=== PATIENT | male | born 1995 | race Hispanic/Latino ===

== ENCOUNTER 2021-04-03 21:17 | Emergency (ER) | payer OTHER ==
[~2021-04-03] VITALS: Ht 175.3 cm; Wt 79.1 kg
[2021-04-03 23:45] VITALS: BP 120/63
[2021-04-04 01:29] LABS: BASO % 0.4 % (0.0-1.0); EOS # 0.2 10^3/uL (0.0-0.5); HEMOGLOBIN 15.7 g/dl (13.5-17.5); LYMPH # 2.6 10^3/uL (1.5-5.0); LYMPH % 27.9 % (24.0-44.0); MEAN CORPUSCULAR HEMOGLOBIN 29.9 pg (27.0-33.0); MEAN CORPUSCULAR HGB CONC 34.1 g/dl (32.0-36.5); MEAN CORPUSCULAR VOLUME 87.6 fl (80.0-96.0); MONO # 0.6 10^3/uL (0.0-0.8); NEUTROPHILS # 5.8 10^3/uL (1.5-8.5); NEUTROPHILS % 63.4 % (36.0-66.0); PLATELET COUNT, AUTOMATED 243 10^3/uL (150-450); RED BLOOD COUNT 5.25 10^6/uL (4.30-6.10); WHITE BLOOD COUNT 9.2 10^3/uL (4.0-10.0)
--- OUTSIDE RECORDS SUMMARY | 2021-04-04 01:35 | CCD ---
Author Author [facility] Organization [facility] Address Unknown Phone Unavailable Care Team Providers Care It Administrative Assistant Name Role Phone Lucas ALEJANDRA Unavailable Unavailable Re-disclosure Warning The records that you are about to access may contain information from federally-assisted alcohol or drug abuse programs. If such information is present, then the following federally mandated warning applies: This information has been disclosed to you from records protected by federal confidentiality rules (42 CFR part 2). The federal rules prohibit you from making any further disclosure of this information unless further disclosure is expressly permitted by the written consent of the person to whom it pertains or as otherwise permitted by 42 CFR part 2. A general authorization for the release of medical or other information is NOT sufficient for this purpose. The Federal rules restrict any use of the information to criminally investigate or prosecute any alcohol or drug abuse patient.The records that you are about to access may contain highly sensitive health information, the redisclosure of which is protected by Article 27-F of the [facility] Public Health law. If you continue you may have access to information: Regarding HIV / AIDS; Provided by facilities licensed or operated by the [facility] Office of Mental Health; or Provided by the [facility] Office for People With Developmental Disabilities. If such information is present, then the following [facility] mandated warning applies: This information has been disclosed to you from confidential records which are protected by state law. State law prohibits you from making any further disclosure of this information without the specific written consent of the person to whom it pertains, or as otherwise permitted by law. Any unauthorized further disclosure in violation of state law may result in a fine or group home sentence or both. A general authorization for the release of medical or other information is NOT sufficient authorization for further disc losure. Encounters Encounter Providers Location Date Indications Data Source(s ) Emergency Attender: JANE ALEJANDRA [id number] 10:04:00 PM EDT - 03/07/2021 01:37:00 AM EDT [facility] Patient discharged. Medications No Information Insurance Providers Payer name Policy type / Coverage type Policy ID Covered democrat ID Covered democrat's relationship to farooq Policy [employer] Plan Information [employer] [id number] SP [id number] Larisa [id number] Problems, Conditions, and Diagnoses Code Display Name Description Problem Type Effective Dates Data Source(s) R00.2 Palpitations Palpitations Diagnosis 03/06/2021 10:04:00 P M EDT [facility] Surgeries/Procedures Procedure Description Date Indications Data Source(s) TROPONIN QUANTITATIVE <td>POCT TROPONIN</td><td>Ro utine</td><td>03/07/2021 12:11 AM EDT</td><td></td><td> </td> 03/07/2021 12:11:00 AM EDT [facility] ECG ROUTINE ECG W/LEAST 12 LDS W/I&R <td>ECG 12- LEAD</td><td>STAT</td><td>03/06/2021 11:35 PM EDT</td><td></td><td> </td> 03/06/2021 11:35:23 PM EDT [facility] PROTHROMBIN TIME <td>PROTIME-INR</td><td>STAT </td><td>03/06/2021 11:20 PM EDT</td><td></td><td> </td> 03/06/2021 11:20:00 PM EDT [facility] BLOOD COUNT COMPLETE AUTO&AUTO DIFRNTL WBC COUNT <td>C BC AND DIFFERENTIAL</td><td>STAT</td><td>03/06/2021 11:20 PM EDT</td><td></td><td> </td> 03/06/2021 11:20:00 PM EDT [facility] THYROID STIMULATING HORMONE TSH <td>TSH</td><td>STAT</ td><td>03/06/2021 11:20 PM EDT</td><td></td><td> </td> 03/06/2021 11:20:00 PM EDT [facility] THYROXINE FREE <td>T4, FREE</td><td>STAT</t d><td>03/06/2021 11:20 PM EDT</td><td></td><td> </td> 03/06/2021 11:20:00 PM EDT [facility] COMPREHENSIVE METABOLIC PANEL <td>COMPREHENSIVE METABO LIC PANEL</td><td>STAT</td><td>03/06/2021 11:20 PM EDT</td><td></td><td> </td> 03/06/2021 11:20:00 PM EDT [facility] Results ID Date Data Source [id number] 03/07/2021 08:55:47 AM EDT [address] [address] Name: COLLETTE MAHONEYDOB: 1995Sex: MOrdering Provider: JANE Saha Prov: JANE Lynch Provider: Procedure Performed: / XR CHEST PA AND LATERALExam Date: 03/06/2021 22:58MRN: [id number] Number: [id number] Class: EmergencyAccount #: [id number] for Exam: palpitationsTechnique: PA and lateral views obtained.Comparison: NoneFindings: There is no evidence of heart failure or pneumonia.IMPRESSION: There is no evidence of heart failure or pneumonia.Report electronically signed by: GIOVANNI ALMENDAREZ On 03/07/2021 8:55 AMWorkstation ID: [id number] Name Value Range Interpretation Code Description Data Lisa rce(s) Supporting Document(s) ID Date Data Source [id number] 03/07/2021 08:16:37 AM EDT [facility] Name Value Range Interpretation Code Description Data Lisa rce(s) Supporting Document(s) EKG [facility] FFSFHd6wRxAGFiPwr6GlCuTgQOYiRS6etuc7U6M7vPHmC1QnhUFxu7zfL8InR7EkFVLqZLJTTU3UrUWx jb2 [file] Om7nlRH2MLRpEszDTk2Qn6BiyhO7dyLmWra3HCg0YtPmVX7A ID Date Data Source [id number] 03/07/2021 08:16:08 AM EDT [facility] Name Value Range Interpretation Code Description Data Lisa rce(s) Supporting Document(s) EKG [facility] YUTCBl2zOkZFXdFqh1JvFvTxWGCbTI6tnja3H0R8wANyU7PldBYxf1xqF4NyK3OgHFLaUNTCNP3TsLVr jb2 [file] k9SqdMOZ2oPNwh00k4h1LO1aobuXkiK1NAMydYnahwRlwYz1wjJQ4Bf89wY4sWYZse6xDj/grape grower/fm9Pj [file] ftrup+1+3d4j6H1k6qvzncrcj41+1nsjmL3f9oxshs rpp51+GtsZ17iyIGbPU+R6jz1cONY4dLdod77P6/m0dDptMUbr3b5mNaYXQfix1VJtfcvQrhtb4R99H4 I3nzKLp26v4rFtt1a4VOkiXN/N+mnWT/N+mvfTvJ/m/TTvp3k/zftp3k/bukt887B/mamWar3f18S1Y6 3303Y/fcsKvn7b79NWH+70935/7fTTTj/t9NNOP+30 004/9xEJcgdaPm6kG7bG4tBHe7h+o2ahfaUWmnfFb0nzC61qf6EjdSL6WCx6tiehmP80D7xFt4c0mux4 57qxPi0358mNH580jcLQa99m1sW2u+b9NO+neT/N+2neT/N+mvfTvJ/m/rKrV3g8hM2P5/203U/b/bTd K2h2fM6O8/20000103/aBJBvn4fPJSD/20000103/bTTTz t3uUdjhlsCKLM9nfr+8r//IdjRLPVO9AfoN2B+rzoPys1/zS5dBn+AP8B/384Pxye0dCebS/+lypTz5c fe8isn/53TxZO/Xr4n/5V4QVQEpYgWPafw7fqjMjtU/G8u6vz0GZ20ysdr/EGiSeZIjGaEL6k9kIxpPz nm13W81d4ekDiRmRsRT+c2azMNz57ee66cHm4JN96t /36ma1QG9jo/yY/f8oL0k39xqJFdObITpBUYgjmYciNzbd8/Jj/Pyjv6p83mUcPJ1XMu00gq2rhZRQ0Y slsG/4B/mj/jK2dm7ATv5F/poCw2xsY8icnOxpismZygiJ4Z/AX+Ex1AsgT5P02Hw9FeG3+Dv8E/4J/m L+gcC+3ywU9e7HFTSKmzSzlF1mrK8wZUN/QQlQKn2K VRVFcFadXht4FoxL6aeCVFWz5AhX++xv8DbjBG+Pgbse4M4hvnvby2MOxH7Y12W3/Bd/A3+Bv8A/5pvq E/G9praK+ixIs3stY/wZ/gL/Jyee6v9/B+De/M0Q9B78lxeh3p5/B+De/C3N0q25dJvw570wFeJc9X4V 8o00rrbz4w4/F+He/N1Z9l44ekpf5n5/F+He/X8X4d 24cgixme26X7Z9z87a5V9y55r7H9W+3daO/G+914vxvvd+D6okanwmj59G752n/G+298urmg1+D9HrT3 oV2E6N5y99U8V7i19K3Z4f1966G2N+37tE2Dph/ae9Deg/ZbtMwumzwaR5vLtdGJjgjFL+AL+AL+BH+C e4Ic0Vu4Sw9Fg+A7+A7+Bn9/47E8medz8r/nQbnrGW dyVFdO6rfW0mN5IvA5rO8O8J8k06X3Y2g99K1c+J+O/7/ZC2mO7gnV1eYrHfBonfBEtTK/wI/8uaw0fm xx/cT1C/uPyaMosJmkG6wWt81IpaD+uP55tHC2wgMX/KM19X2zWfuO2NS+JRPvd/b3SFK/Kq/H+emHkv qJADXxvYYKm3wkiz/G0eFbx1oh+5pQNhfVPt9di4o/ Pn1VUr+e8eS17vyG+lX5Bo7+/6lfpa/n6u+yoB9KZekxjut98D6Yj0mMXXwqDE4Lw/7oE64xn2zq00A1 NA0kJx6DAxl9nT14jbf/e1O/llCyQHnTh0B/wV/gL/AVfAXfwI/2noou/IGuX4V4fpaA1J+o2p1aM7r5 Leena+pbGuiROUv+21cZHWu0qE+fUiGpu82ed/9WSWw9 Pcfo2Hg+pZqV+l3EK/wsVMCUmm6PYdr/FSLgvbQz0G/7XXTtX/g+9hDRjSz1Ypph34yX/839c0Q6jk+t XYWWevf+O45G/7pTJmRl5QCgxYy7p/FvpVru/crOZbAnIl1Zb3xQvbraTpY0i/cT3aG/pVriXjjORXP8 Me8HtHzlq30FpgGhHsS781rW+sI3JNC5+79h4NcZ3a /3jsbmpd0rn7hItFBOMF2wsirxaM29p7nSp7IYPdGXzPBX1Y8UwO/QzrMdh2L2I+DlTeEGmKNK9T4EpU /JaF9vwN+flM8Ge/u2Zuict9DW/vN/Dl3TIpO3OPwPwvR/yd9IvXq51lA+pXMSfPp+aehieYLTJc1Rz3 E/wJ/gJ/ga/uj40cPDglAikV5vYR44Bb6Xz9Mjtm57 FM/SrLqV/dMvgD/AG+fN/HmfrVk+W051QZ/AV+qGmhAkT2q6iY7241hfrqi02n/ZsHZtqvdvLDfuVV/u yGWrSzn0J+4tUt6aPwz1fH+5YjawW93qyGf1xuveJLGY+WEG1GW94gCH5IG4+Ny858gtohFiJz1iTQD3 8jci4vfejWkGEVR0XLg/4hLtkPWU9eDB048Hk5U5XN xa+c9skqv/rgb7KhTfix0A0ysZTa7jq0q8R+4a9d1ZhyJD16/w/9Ga8ltKvbvDwsFlNngJNj7zij0EcH acuQ7H7Ag1tg4LXHIZ57y/B+Q7+n7421jkYWEbi0N2xDc29O/ke96Bhl1hzJY2lkAfwQn6dtvwbUCQ22 HKV+lXJO/RmhrWyAbMf4n+nh5iw8zEj8W2JL+xP2q6 k9P0/t+XmqgC/gz+/7Mst+leUF/cXqiGoyOmRo6gxyJebRojqsFcN3+vxqbdea5s+e5Zvvza46gBvhF/ gT/Al+jpnd3GmE5fwX+9U0w/8x/H5G17VvtPbxpfK+s02b9MpN1zzF+9WE/Jd6305f5XjQ9rbL+9V0vF /H+5K213Jn7WrE+tV0vF/lEgH02NG7Y3s3Dl2nuG4y 53ciT2Vx1cA0wvG/lvEpWfGqIk6gAu+a0K/mRn/eeL+bU0Z0uicABmnUZ/sZsS33cI2R6VwP+tWEfjWh E89GitayYoO8hav08VD8rtK+NWG/mrBfTdivJuxXE/ioZhuCuR8dth40Ie+icB6u5K5P0AcH5qwP+9WC /KpRjfBtj5cpE40y3g/uaYhmpvM4Bh/AN/Ad/N4/Wk /rk+vp of global marketing+XmlfnXLzU/9Ku9N/arKA/kTacO5w/YYYQooFVct9JUI5k9by2afof9tgvF0nhfw/A3+Bj/aG9 +lywevEAtkO6qdg7x6bN/5n7CQW2t0jiYUyhFylV3tBTlbJ1ItO1zof17n4Yl3Tv9A/RvPPeD3/uCaeL 2W95v5BAzBvJmv/kk3kvzCmBwnoai10z2Y7k51e4J7 ab+q/+K0l9fqHK+lhU3Eoznfc/vbcJ1eN2mRe8y9zh44e9U6U+1daO/C+MX+4FqK+rI6TjtVvww++jP0 a6GG2cN5LbT8uv1I37jpg+L3Ga5anz9W7knwp4sr4r1l9a/i/Srer+X2Doyncs5l9l+kvMv6OgVlQtFa 6/Xvsl7/LhvgD/OYlGkHrmlJOilLaAqEldzB5A8w1/ wHne05PC/G2I6Xe1xvOg0/rR1ahxWmq/jXbhKtLs0qQf8sS7mja77y+qHHtkCmYz7Q3AL6lbQw/DrGr+ P9Otqb+nKxO3olA8BXAi/V8Hi1f6h/tDRuMh93Gy+3JuAioeWAv2AjJS3SpQa7gvM0j634ft+Z0g709e a9Sox65Fpe8ziq23k7y/d+0Kr6U4i9NQ/7FbJkHt8p Nk7j1B4G0CnQ/BdSt5sDhok1kgD8myB/DgZlLeUdNl0wGp9j0L5C6PzQ/HjWo0qOr/Rp/Vmf3j/Sp9dH +tax876ozT2hw/GxZm70zgsFW2z2CXFslYebhBNSKxnzamz6c1/0satmX6Yaa12y6yb9S+pkacJBdl3A /4Doftd0k/U0ss3M8F549qs58am36k/W/+pXdmLtH2 mmwTe9Tc2ZSbxJ6cIi2nQmnPkfszjikj+Ghr2hiuQoXL94nT4yNosAr3HgcQbbqOr6xmOhiQ/jx639Cd Bw80p2ExI+5XnN+jezbj6VD1xEj2gmfZNms3n0O1DgP8MYp5SVwiylHRe4b9taJEFaNd4eb1B58edK3H brDdc7+I7rN+rZ4B/wT/GmS8cg7c61x/9CF3x54H9y 0cdP4be7kx75s9ae25l15j0MDgC7rryziOl/e00Kx9A8lu+gq/fLNPWrKg/n5i7E2v1Lc+L6iXoW+L3+ 0xMdC653YsMr9Pg2UZ0k/K8U/lcK/yke0Eq3Xkc8raL0L5XOI9Ldp6Waz3oy+FE96m8P+jQOa3BclOF9 7e2qrW+jFrsez2mAscX4+0EZ/AN+wOlRwZM0jt7G7u Y6zaE0f4mNDp/KsZ/5EPJnt1BrSvvS3ov0QJiArcKUra0CNByx6F0x9QgrQx8k3gGcKI2Rx2j+opr7gy v5YY/H34KvM4wVuqspli0kizz+NJGT25z5YPlGy01Y/cFbfuf/hD1Hn2jkdHw9+8qmo95zF0813Z+7yn unovIidWaZfa7iD9/wN/gH/HL9oL49hfJm/dzQr+r/ lX4Bfvsh1+07QI45FrRY+dHDRkDzpTDMKzR4IjW/qu/CtazasD8226+Vu/+MleO1we48EerZtt5ZF5/K 7+/p/SNN/UqMyHg6bb8uD+nB+D9Cxjnm95Z/oUK/WldXJx5IgQ/njMt0MM+bmjqd6stC3c9kWtuAO/Pz 5glLnr9h9PvXK+AE3RT2ah1d3XxAXp9kS5Ea5S/w25 /RUgZ6Uc5Y1+A7+Be7oud4+5dXs96t6Zp7LO6x/1p7xxbD+AI+1ahQ7zP2OyJ4iW9K2A6r90J7573Txq 31ek8dM4hT/sH1eL/xydA5Xny2rdn+VyYCvqCe/o6cICQAde+uU9BZ3J91P6/BM3eX6XV3Sk30q/mz1w p2389he6QG0m23wakp1/WRwb/e5G2i7C+3ifZOtHei vfBvN/i3G/yhAe6iAd04q1+7wb/k5U2l0K74+Lcb/NsN/u0G/4zLl5aQf57b072oQeh98s16sJ05T/qV Xb5l9EbT/emfLwe7H2U+ZdCvTNFe+Lcb/NsN/q0wBq3pJ/92g3+8Rjitfe5udg4WE//3TyEj5Qm3B/8H 7YV/y0kp04cdDikimbm9r7bMMR+7XtCu6A/vI864k6 6AUBIV4W35fMte/6hpCyigz9U35sr1/2ve+7/Esau+laH3195q/jveL/UHD/xNCw96w8mt8j3h0DZV/u8 G/3eDfbvBvN/i3G/obAv3qMb12a0+8poY7o99jimr3eds95a2+5irvKns99WJO/3bbivoVzzXUg/kK/l cG/yvD/bMvg7N6595hp01nFgfiYsm0koJ+ZbBfGexX UdqFfV1e6V0Z+mTDsaSyCjg9oyM+DjZe8bB1GSw/B+8L9yl8og/vsF/584A/wO/2OvYH/en+7E/7m/kz wV/mC7Am5Mh43idNta86id80r/446t/4Pxv//0Yn38dY25jPk2mUy11N+z/76O+pr4R0wMyaT+rp/TIf 7V/gN9YXd4b9n8qkD3Bx6c/21K+aRUe1I09wi9bXng aGAbrwI3b4S96x+AP8tj+96TsInx6PWALoIcZ4r8mj/p8Pv0uBQ9itx69Ti4mlOv49M6zq08uhpmoRDj 8ueL/S31+kEH8c4hkq3zn0tm/Gg27pleZh6o/4eO5Tb91Z+lzgK/bOtyFo6Wv7mA2r2U631lyhP/B7vR Kalci7YsaBZmXg0bxvRV34h/T30aLa7o60hUY5hZ08 JwhOS5OxR/bQr+71YX/2LOtzbdQO/3ZP/Gn0tGegtXtb7grH3R+r/B400Zim8v94/Fcp7yMmkTLL6CUf 2CXnE446stzYpEf85X3pjz+vC0YfbCQ/DhmKz33H6uK0i/TQr9K/0UO/xfR9n027q1PySpvDnrPXpr88 vDfaW8/yHl+N4Pd5vUmcCt4/I6aaF7p4+msu1bArnP 82F6qojO6cO/vsjsC8118/v11L1naeFteDjGvqRDdCJPr/8L9y+F85/K8c/lcO/yvH/eQay7WsP+jYH3 NqAp08zeLjLwJpj05d0I1y+uXtw7VqZ+ju4G/v2E8zSxr5G9u+3gc8P574Sri6IK/AF/An+SC62s07L1 5O/voLtrk1NDqIod31Wb/9efd+qKd+dcvNL/tVlcEf /X1J/utYZp4Bl+9S4oqTPgL6iihjvbDgXuPuIrZ+Xt0nk8Try0+Vtcsb/C9mIqSdadIFv5yn9f50YlzL FocV6rK0c/5jSiNnO1ufL+XctUO/PujmZf8u0lu5Fe0nw7C9B1qSkk8dd76Vcr64iC57N+3/vEO/uuWw x+0e63Z62hzqlggN6Lp43lavh52dC4mW4Cg49oFEA0 yQx1KYZ/vNagCwf81dzy//573xKJOKB0sA/XkkP+zPtwy+9XsYSL4/E+1j7uDe6erOeZX6m/A93yHfgY /1Et7c0ERZv4kv/ugm3v0b8z1747/6dtYc98o+7fmu07/9lrs/SO+Eyce18b581ra/36ktbX/e0v78O/ Xq3BA33Xtp86qrm1mP+3F14qfQRmf0x8Wx7XS6H32t 3Vih3zZ56cwzD6xJ/sL1PV/n0sXWdo4cvtx3Y+5U77GyEA/c6mJv6QGGp6O3w/mr/XP2av+6vdrevtN+ LMGXB4FQOX05Z0QYa838dk0S7X3KoaEg4Tc7It3gi6LrfoLrqQqYDn5GZ+BO2TE8mXlFTe1nX/AX+Ggv 2it91kr5Ui331DD0UhbxK/wDfvtPbvhfbfhfbfhfbc P7Nbxf+F9t+F9t+F9t+F9t+U4aW5wV5XM/1Ta0F/5XG/5XG/5XG/8Y02YoQ6b6/UP2nu24+vGplZ471+ 6ew17953asV2i+KoiuCwedH39i+AY++rOjPzveL/iolyN4icA60urQ5j04kjog4ejwj5E4oD/tz6p68f WZY8y72k1L2o08T/rRia40oU9q7Zw0c/A3+Af8Pu+8 U7+6ZfAH+AN8AR/kNIfdzsYp6IFju/YetPegPx+738S4QhX9vU0l2/d5vI2jp1Jvd5C1bmuz8s2y00rd /h3qM6K2zY/Bn+Ox9CJj23y8/R7M8VwN1XgqMxq2+Fo5Xi5Uf/isMb8yl+p24jybc9jM2ZG7BX+CP1H/ Qv1tbz+a9u8N2fwH//NzMZdR09Ml9C/j2x56Qo3dSP l/7QGpN3sc84nYDg9K2KUMQ/VxKsid322t764i722w021a685n780q620w419Z5HC/+4F/+4F/+4F/+4 F/+6vb82Y4F9r63F8u2n+c4C/wF/zl64VV9+eaO4yvf9eF7/b2g/3Bg/3Bg/3BM9v+hFymf045pP/1/s H+4MH+9Qnahz5R41z6+dzJlysJv95tR3aKYe19vEJr q60awsvMm/A3+Y8dQWa6DWyz+/z+Ww1u9Wps9H48aVh/J/XnxSm65zyaM7dWE9q9AsnUrE/6su2tLzfr g/hXB/uDB/7tB/7tB/jin+kH1L172Z90gz6p8S/ZHaoXv8TD/+og/tVB/KuD+GhD4ypMpx3qjC84yD36 EP/lSR2YIhijd/ODx3p//6R+Feu4E/lYsmbqrP1niN 47oV+iXrbzylucQ59Cz+rxtMcmP+JRZD8J/Uo9+eEPHDaB4+0/eVK/yn4S+xD2OI58i2k+KXxHcPqv4p Y+2R9e/Kw8uJA12c4ok4Rgwj20ck+T/Fl4m3HuOv/g4Kf/Vcph5/nf+A+74xMe+Cxp6jhXm/8DaM7cig /2b018C1C7jI/Ncq9/T/gzRDrFVli9lu42y6e25UJ1 dspGocV8z6/L7iBV9e3+Hemyn9Yf1TmuG/AFfMzPB/Rkvxp8VD7exS0Sic/E6gteOf0o3BD201NhKOM2 ByKWK53bmV0zVjw7HWCfUbopDJDAXk0mMnjpzsylMnoluH8oDhrKcVjXtwevDmtbleUy92xsFyfmn6wh LoVPrQNSdpy4f+dDgkh/yq0WVIeVRqKqlLxA8jW6P2 Q+DNesUzrAWbFXVNMDWgraYvrNhGSezOGKvWxk5gP+b/1VPhW3Bdo71TsA8MgE1rSFKA5FqKyIREMdIf GgcJc0avRg1nAkVJgDxl2uh46Qf8s0Ye7z8ntJ4hyH66ouwhIftX6JPx8+lK433doI5DmuS2W/yLFPhn x2QY7ggA0U8SXaAc+ItE+GechwpE/WrtWQnaNaa4Fj nneQVwq2GUVm6TfCmCvMFmAlya1IEclxCc8BHOpXKcmmKszzTwrJObvxlaoumW8VEUNFZT7pFue8Zfmi /h3jf3P+b9ei5khWuoSS4hGj4qHpdog4oR9eje4enQ86ZuoWeJO4NaPJijho0kJ/EihslL6dvJ9wK/JN qE0D0Nwd/XX9WHzAiZ3gFjSdLNTJsSlYuMBSe9d6Q/ JLAIFj/Ca3OgzU1XX0L5MGjUG16Vc2zcJrKAdzngptuU5FRmYvZqZLfDJhCk5yR8pSKeBIlX+HBJFBZB ARIr1C/VLbUzcLJozZCkWVgFpUQRKTOFMnZ1jtcwLCZvRjmq/9PCSIDCKDiBARIpPIJEIZbMpgK+9BbN KMuKOciqggx8j686h3wH6mTciyVFJXPvRQfC4l/D4H KP8xW6nYHUAhaYymr1ayynBHaQCmCXY1O7VFKWExu1IBSB6eKg/4CCIIDTvgSzb+JNYYiDYx/qTZGIg3 TBi56eQPZSIsFoA+NyPiRJzIJrKJHCKUwUA/QWIpX3XDBtn/MTJAfROsjTIYlMGgDAZlMCiDQRkMymBQ AcVdQELKmZmFXDXrt3YIMBaJyN/IIMJ+OMvKur1pvB KjrfVZxPlapr7ysI+hDMR4j/EeykAoAwaw/xPB/dhpd1feW1wXotSfo8xItDEEaEImcQeRIpaZAUJeMM Op/G/G/2YSwZrvKRqVJdxDmMqS7/5PYPs/ke3/hLb/E9v+H2Y3A5Dz/4S3/xPf/k+A+z8R7v+EuP8T4/ 5PkPs/Ue7/hLn/E+f+ZnecDOvMw2alE90wcq77BnxX tbKkEjIyW2aJEEZHkoDe0h6UcYOILvje1L7+9ySb7k6ENidnPT2YI2MgthIYNAOAOCWTKZWTZWp+NTzZ RoXC/ukhumypG2FwgIYRCmMTMAYqrMYVRa6EYKZadWJYWu8VKBYrqYFzAho7hcFboMSqJAljgAzADsYV JauxyuOKtq7wV1M3KccqY1nG/xMq/0+s/D/B8v9Ey/ 0MDj0LcRm/AfP/Regino/EzL/V8i7vcNw25oMG8PWHOdf09UceWVQiEEXchPa8Es/wuf/iZ//J4D+nwj6f0 Lo/4mh/Paulo/p8o+n/C6P+Amena/0eiR4pRAy/Qun/iaX/J5j+haWbTeVPiX5vLK9dNLKHgsU9kwAeXE9oyC [file] Pastry Wrapper+BgMhnVF8163PjTKhyG2hv8IGiWL4Qg6nc1Bu7bBJTs6FImCM2Yn0gdpS0WLaXh/BstJ7bczMoshV7 [file] 11pUZou269Ft+concrete form setter/NctebEUz9PUTF3gOVgRuwJzgq WiuJxRX514rdTNHCJC+xTC8Kdql9SRpXTh+SWZzvmt4McffjwnxpfSoxnqULiwQXkOciR4nLUcOTlDBf NIwCFeJG8ONv8g9vdn7TEhefPKGh1N4M/eUIMxSU73pJ3+WRyWyadAzoPwTRiKIiZScIOgFJqqZCB9U+ GZwRN8Ywy7BPCHvRzRoW3hYheX4I1zyRiWxQ1FOzVJ C9k4p2HDsPZplELMuHtVhM1MZyLCP8nbDp9Ue2QVqVlE2DDY+OzN7t84PRwRcRJWYlIJ7In4KRjLJhIK cFRDzPDSFYYkuYueIjZPpeM6Ubcd9NVZOf5nB2uoj9XhbXBQFP+H193i7a20ihOmVdW0XtRn3Z7KTC/c YRK8V6LE0B7snMmPfLkb1XcjRak5uyIno1zHn+YqKf mOgnOo/NsEblT6dhN1buN7j8I22OSynPDUIboRG/iR0tUujG5KP5VmpWePOv4XLut1PS7+cTM5pddO3H 0BHnrD3ZbCrsD4SmXXwDIwVViZFs+miC18oNZyxMLnDRTNxTKwvWRpwPnlNbDEL9UMeTBbRJbOOqTI1O PYfDXBOAErIFmRHNPPDcvTIebCqClutUS4TKACWDIH [file] Hy2ifDS2XHOnWhvFWs9Jw7EhduV0ehHdWiy1ZRR8JvFcHB3R ID Date Data Source [id number] 03/07/2021 01:01:44 AM EDT [facility]PATIE NT INFORMATIONPatient MRN Name Date of Age Gend*PT [id number] Collette Mahoney 1995 26 years M EDPT Location Admission Date/Time Visit ID Attending [id number] 03/06/212203 --- Jane Alejandra MD ([id number]) EPI ID CSN Admitting Provider [id number] ---Provider in Triage NotesNo notes on fileHistory of Present IllnessChief ComplaintPatient presents with Tachycardia Pt was at the movies when he started having substernal pressure, racing heartand diaphoresis. Upon EMS arrival patient feeling a little better. States he hasa known bradycardic arrythmia but unsure of the name26 year old male patient presents to the ED via EMS for evaluation of chest painwith associated tachycardia, palpitations, mild shortness of breath, anddiaphoresis that began earlier today, but has since subsided. The patient statesthat he believes he had a panic attack. The patient thinks he ate too much fastfood this past weekend and drank alcohol all weekend. The patient admits todrinking a lot of vodka and energy drinks throughout the weekend. 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 The patient states that he began to experiencing chestpain and intermittent tachycardia and palpitations, diaphoresis, and mildshortness of breath while watching a movie. This episode lasted about 20 minutesbut currently he is feeling much better. The patient states that there is heartdisease on his mother's side of the family, but no one has suddenly due toa cardiac event. Denies fever or chills.History provided by: Patient, medical records and EMS personnelLanguage conference interpreter used: NoHistoryHistory reviewed. No pertinent past medical history.History reviewed. No pertinent surgical history.History reviewed. No pertinent family history.Social HistoryTobacco Use Smoking status: Current Every Day Smoker Packs/day: 1.00 Years: 5.00 Pack years: 5.00 Smokeless tobacco: Never UsedVaping Use Vaping Use: Never usedSubstance Use Topics Alcohol use: Yes Alcohol/week: 9.0 standard drinks Types: 9 Standard drinks or equivalent per week Comment: 9 daily for the last 3 weeks Drug use: NeverROSReview of SystemsConstitutional: Positive for diaphoresis. Negative for chills.HENT: Negative for sore throat and trouble swallowing.Respiratory: Negative for cough and shortness of breath.Cardiovascular: Positive for chest pain and palpitations.Gastrointestinal: Negative for abdominal pain and vomiting.Genitourinary: Negative for dysuria and hematuria.Musculoskeletal: Negative for back pain and neck pain.Skin: Negative for rash and wound.Neurological: Negative for weakness and headaches.Psychiatric/Behavioral: Negative for agitation and confusion.Physical ExamBP 142/76 (BP Location: Left upper arm, Patient Position: Lying) | Pulse 76 |Temp 98.6 F | Resp 18 | Ht 69" | Wt 81.6 kg | SpO2 98% | BMI 26.58 kg/m Physical ExamVitals and nursing note reviewed.Constitutional: Appearance: Normal appearance.HENT: Head: Normocephalic and atraumatic. Nose: Nose normal. No rhinorrhea. Mouth/Throat: Mouth: Mucous membranes are moist.Eyes: Extraocular Movements: Extraocular movements intact. Conjunctiva/sclera: Conjunctivae normal.Cardiovascular: Rate and Rhythm: Normal rate and regular rhythm. Pulses: Normal pulses. Heart sounds: Normal heart sounds.Pulmonary: Effort: Pulmonary effort is normal. Breath sounds: Normal breath sounds.A bdominal: Palpations: Abdomen is soft. Tenderness: There is no abdominal tenderness.Musculoskeletal: General: No deformity. Normal range of motion. Cervical back: Normal range of motion and neck supple.Skin: General: Skin is warm and dry.Neurological: General: No focal deficit present. Mental Status: He is alert.Psychiatric: Mood and Affect: Mood normal. Behavior: Behavior normal.ED CourseECG 12 leadDate/Time: 03/06/2021 11:35 PMPerformed by: Jane Alejandra, MDAuthorized by: Jane Alejandra, MDPrevious ECG: Previous ECG: UnavailableRate: ECG rate: 65 ECG rate assessment: normalRhythm: Rhythm: sinus rhythmComments: QTc 401MDMNumber of Diagnoses or Management Hsjaude59 year old male patient presents to the ED via EMS for evaluation ofpalpitations, diaphoresis, and shortness of breath.DDx includes arrhythmia, ACS, hypertrophic cardiomyopathy, anemia, metabolicderangement, thyroid disorderLabs, EKG, CXRTriage note appreciated: patient denies history of diagnosis of cardiacarr hythmia but states he has felt like he has had moments in which his heart hasbeat slowly in the past11:10pmCXR without acute pathology, my impressionWBC 12.4Electrolytes unremarkableNormal CrNo transaminitisTSH normalFree T4 fxwuvf32:09amTpn negativeNormal EKG, unremarkable labs, patient is feeling better. I have low suspicionfor acute cardiac pathology; unclear why patient felt palpitations earliertoday, he does admit to alcohol drinking and heavy caffeine use via energydrinks which I think is contributory to his presentationHas not felt additional palpitations while he has been hereTo follow up with primary care physician; will place patient navigator requestas patient is personnel and is not sure how he can access a primarycare physicianReturn precautions givenStable for [id number] scribed for Dr. Jane Alejandra MD, signed by Iam Babb CIM on03/06/2021 at 10:32 PM.ED MD AttestationAttestation of Scribe Documentation: I personally performed the servicesdescribed in the documentation, reviewed the documentation recorded by gardenia in my presence and it accurately and completely records my words andactions.Jane Alejandra MD 11:09 SHERRON [facility] Name Value Range Interpretation Code Description Data Lisa rce(s) Supporting Document(s) ID Date Data Source [id number] 03/07/2021 12:23:05 AM EDT [facility] Name Value Range Interpretation Code Description Data Lisa rce(s) Supporting Document(s) POC CTNI <0.01 ng/mL (0.01-0.07) L [facility] Less than 0.08: Myocardial injury unlike lyGreater than or equal to 0.08: Highlysuggestive of myocardial injuryCorrelation with rise and/or fall ofserial troponins, clinical symptoms,and ECG changes is necessary.PERFORMED BY [facility] CLINICAL STAFF ID Date Data Source [id number] 03/07/2021 12:12:48 AM EDT [facility] Name Value Range Interpretation Code Description Data Lisa rce(s) Supporting Document(s) PT 11.2 s (9.2-11.9) [facility] INR 1.06 [facility] SUGGESTED THERAPEUTIC RANGES USING INR F ORSTABILIZED ANTICOAGULATED PATIENTS:STANDARD DOSE THERAPY INR 2.0-3.0 DVT, PE, PREVENT DVT OR EMBOLISMHIGH DOSE THERAPY INR 2.5-3.5 PREVENT EMBOLISM FROM MECHANICAL HEART VALVE ID Date Data Source [id number] 03/07/2021 12:05:26 AM EDT [facility] Name Value Range Interpretation Code Description Data Lisa rce(s) Supporting Document(s) TSH,ULTRASENSITIVE @ 1.282 mIU/L (0.360-4.170) [facility] PERFORMED AT [address] [place] [address] [address] [id number] ID Date Data Source [id number] 03/07/2021 12:05:26 AM EDT [facility] Name Value Range Interpretation Code Description Data Lisa rce(s) Supporting Document(s) SODIUM 144 mmol/L (136-145) [facility] POTASSIUM 3.5 mmol/L (3.6-5.2) L [facility] CHLORIDE 114 mmol/L (100-108) H [facility] CO2 23 mmol/L (22-31) [facility] ANION GAP 7 mmol/L (7-16) [facility] UREA NITROGEN 17 mg/dL (7-24) [facility] CREATININE 0.90 mg/dL (0.80-1.30) [facility] BUN/CREAT RATIO 18.9 RATIO (10.0-20.0) [facility] GLUCOSE 101 mg/dL (70-99) H [facility] CALCIUM 8.9 mg/dL (8.4-10.2) [facility] TOTAL PROTEIN 6.5 g/dL (6.4-8.2) [facility] ALBUMIN 3.4 g/dL (3.5-4.6) L [facility] GLOBULIN 3.1 g/dL (2.7-4.3) [facility] ALB/GLOB RATIO 1.1 RATIO [facility] ALKALINE PHOSPHATASE 103 U/L (45-117) [facility] BILIRUBIN,TOTAL 0.7 mg/dL (0.0-1.0) [facility] PLEASE NOTE:Total bilirubin results may be falselyelevated in patients taking Eltrombopag. AST (SGOT) 15 U/L (11-39) [facility] ALT (SGPT) 15 U/L (12-78) [facility] GFR >60 ml/min/1.73m2 (>59) [facility] GFR ( AMER) >60 ml/min/1.73m2 (>59) [facility] GFR INTERPRETATION [facility] --NORMAL KIDNEY FUNCTION OR MILD DISEASE - GFR >OR= 60CHRONIC KIDNEY DISEASE - GFR 15 - 59RENAL FAILURE - GFR <15 Est. GFR calculation based on the MDRDstudy equation, which assumes a steadystate for creatinine. Est. GFR should notbe used for medication dosing. ID Date Data Source [id number] 03/07/2021 12:05:26 AM EDT [facility] Name Value Range Interpretation Code Description Data Lisa rce(s) Supporting Document(s) FREE THYROXINE @ 1.16 ng/dL (0.76-1.46) [facility] PERFOR[facility] AT [address] [place] [address] RADHA ROSENBAUM N Y [address] ID Date Data Source [id number] 03/07/2021 12:04:41 AM EDT [facility] Name Value Range Interpretation Code Description Data Lisa rce(s) Supporting Document(s) WBC 12.4 10*3/uL (4.1-11.0) H [facility] RBC 5.21 10*6/uL (4.60-6.10) [facility] HGB 15.4 g/dL (13.5-18.0) [facility] HCT 45.9 % (41.0-53.0) [facility] MCV 88.1 fL (80.0-95.0) [facility] MCH 29.6 pg (27.0-32.0) [facility] MCHC 33.6 g/dL (32.0-36.0) [facility] RDW 12.3 % (10.5-14.5) [facility] PLT 194 10*3/uL (150-450) [facility] MPV 8.4 fL (7.1-10.7) [facility] NEUT % 75.1 % (35.0-75.0) H [facility] LYMPH % 16.1 % (16.0-52.0) [facility] MONO % 6.9 % (0.0-8.0) [facility] EOS % 1.5 % (0.0-5.0) [facility] BASO % 0.4 % (0.0-4.0) [facility] NEUT # 9.3 10*3/uL (1.8-7.7) H [facility] LYMPH # 2.0 10*3/uL (1.2-4.8) [facility] MONO # 0.9 10*3/uL (0.0-0.8) H [facility] Eosinophils [#/volume] in Blood by Automated count 0.2 10*3/uL (0.0-0 .5) [facility] BASO # 0.1 10*3/uL (0.0-0.2) [facility] Procedure Social History Code Duration Value Status Description Data Source(s ) Alcohol intake 03/06/2021 12:00:00 AM EDT Current drinker of al cohol (finding) completed Current drinker of alcohol (finding) [facility] Tobacco use and exposure 03/06/2021 12:00:00 AM EDT Never used co mpleted Never used [facility] Cigarette pack-years 03/06/2021 12:00:00 AM EDT UNK completed [facility] Cigarettes smoked current (pack per day) - Reported 03/06/20 12:00:00 AM EDT UNK completed [facility] Smoking 03/06/2021 12:00:00 AM EDT Current every day smoker co mpleted Current every day smoker [facility] Vital Signs ID Date Data Source UNK Name Value Range Interpretation Code Description Data Source(s) Diastolic blood pressure 73 mm[Hg] 73 mm[Hg] [facility] Body temperature 37 June 37 June [facility] Heart rate 58 /min 58 /min [facility] Res[facility] 18 /min 18 /min [facility] Systolic blood pressure 122 mm[Hg] 122 mm[Hg] [facility] Body height 175.3 cm 175.3 cm [facility] Body weight 81.647 kg 81.647 kg [facility] Body mass index (BMI) [Ratio] 26.58 kg/m2 26.58 kg/m2 [facility] Oxygen saturation in Arterial blood by Pulse oximetry 98 % 98 % [facility]
[2021-04-04 01:58] LABS: THYROID STIMULATING HORMONE 2.08 uIU/ML (0.358-3.740)
--- NOTE | 2021-04-04 03:23 | REPVR ---
PROCEDURE INFORMATION: Exam: XR Chest Exam date and time: 04/04/2021 1:46 AM Age: 26 years old Clinical indication: Other: Chest pain TECHNIQUE: Imaging protocol: XR of the chest. Views: 2 views. COMPARISON: No relevant prior studies available. FINDINGS: Lungs: Unremarkable. No consolidation. Pleural spaces: Unremarkable. No pleural effusion. No pneumothorax. Heart/Mediastinum: Unremarkable. No cardiomegaly. Bones/joints: Unremarkable. IMPRESSION: No acute findings. Electronically signed by: Ole Bean On 04/04/2021 03:23:23 AM
--- NOTE | 2021-04-04 05:51 | ECGEPIP ---
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
== END 2021-04-04 02:45 | disposition home or self-care (01) ==
LOC: M ED 21:17
DX: M94.0 Chondrocostal junction syndrome [Tietze] (principal); R00.2 Palpitations; I45.19 Other right bundle-branch block; F17.200 Nicotine dependence, unspecified, uncomplicated

== ENCOUNTER 2021-04-16 09:56 | Emergency (ER) | payer OTHER ==
[~2021-04-16] VITALS: Ht 175.3 cm; Wt 78.5 kg
--- OUTSIDE RECORDS SUMMARY | 2021-04-16 10:04 | CCD ---
Author Author [facility] Organization [facility] Address Unknown Phone Unavailable Care Team Providers Care Wide Area Network Systems Administrator Name Role Phone Lucas ALEJANDRA Unavailable Unavailable [...] is protected by Article 27-F of the [facility] Public Health law. If you continue you may have access to information: Regarding HIV / AIDS; Provided by facilities licensed or operated by the [facility] Office of Mental Health; or Provided by the [facility] Office for People With Developmental Disabilities. If such information is present, then the following [facility] mandated warning applies: This information has been [...] law may result in a fine or longterm sentence or both. A general authorization for the release of medical or other information is NOT sufficient authorization for further disc losure. Encounters Encounter Providers Location Date Indications Data Source(s ) Emergency Attender: JANE ALEJANDRA [id number] 10:04:00 PM EDT - 03/07/2021 01:37:00 AM EDT [facility] Patient discharged. Medications No Information Insurance Providers Payer name Policy type / Coverage type Policy ID Covered constitution party ID Covered constitution party's relationship to farooq Policy [employer] Plan Information [employer] [id number] SP [id number] Larisa [id number] Problems, Conditions, and Diagnoses Code Display Name Description Problem Type Effective Dates Data Source(s) R00.2 Palpitations Palpitations Diagnosis 03/06/2021 10:04:00 P M EDT [facility] Surgeries/Procedures Procedure Description Date Indications Data Source(s) TROPONIN QUANTITATIVE <td>POCT TROPONIN</td><td>Ro utine</td><td>03/07/2021 12:11 AM EDT</td><td></td><td> </td> 03/07/2021 12:11:00 AM EDT [facility] ECG ROUTINE ECG W/LEAST 12 LDS W/I&R <td>ECG 12- LEAD</td><td>STAT</td><td>03/06/2021 11:35 PM EDT</td><td></td><td> </td> 03/06/2021 11:35:23 PM EDT [facility] PROTHROMBIN TIME <td>PROTIME-INR</td><td>STAT </td><td>03/06/2021 11:20 PM EDT</td><td></td><td> </td> 03/06/2021 11:20:00 PM EDT [facility] BLOOD COUNT COMPLETE AUTO&AUTO DIFRNTL WBC COUNT <td>C BC AND DIFFERENTIAL</td><td>STAT</td><td>03/06/2021 11:20 PM EDT</td><td></td><td> </td> 03/06/2021 11:20:00 PM EDT [facility] THYROID STIMULATING HORMONE TSH <td>TSH</td><td>STAT</ td><td>03/06/2021 11:20 PM EDT</td><td></td><td> </td> 03/06/2021 11:20:00 PM EDT [facility] THYROXINE FREE <td>T4, FREE</td><td>STAT</t d><td>03/06/2021 11:20 PM EDT</td><td></td><td> </td> 03/06/2021 11:20:00 PM EDT [facility] COMPREHENSIVE METABOLIC PANEL <td>COMPREHENSIVE METABO LIC PANEL</td><td>STAT</td><td>03/06/2021 11:20 PM EDT</td><td></td><td> </td> 03/06/2021 11:20:00 PM EDT [facility] Results ID Date Data Source [id number] 03/07/2021 08:55:47 AM EDT [address] [address] Name: COLLETTE BARLOWJEFFB: 1995Sex: [place] Provider: JANE Saha Prov: JANE Lynch Provider: Procedure Performed: / XR CHEST PA AND LATERALExam Date: 03/06/2021 22:58MRN: [id number] Number: [id number] Class: EmergencyAccount #: [id number] for Exam: palpitationsTechnique: PA and lateral views obtained.Comparison: NoneFindings: There is no evidence of heart failure or pneumonia.IMPRESSION: There is no evidence of heart failure or pneumonia.Report electronically signed by: GIOVANNI ALMENDAREZ On 03/07/2021 8:55 AMWorkstation ID: [id number] Name Value Range Interpretation Code Description Data Lisa rce(s) Supporting Document(s) ID Date Data Source [id number] 03/07/2021 08:16:37 AM EDT [facility] Name Value Range Interpretation Code Description Data Lisa rce(s) Supporting Document(s) EKG [facility] IPSWPy3uObWPSaEsh5PqEvClGBLzHT5oopo0Y6Z7oWKlC2LnwHNrf2oeV6LeZ8ToJMKnMVMVVJ5QwFFf jb2 [file] Ri5hfGM2CWDsAxwASf7Nd2XiquY2wnVkHrn9BJi9SmHzNI4U ID Date Data Source [id number] 03/07/2021 08:16:08 AM EDT [facility] Name Value Range Interpretation Code Description Data Lisa rce(s) Supporting Document(s) EKG [facility] MZCBGp2pKjNQBnYcv9QePlQfYUGaVP2krsj9I5Y5tIXkQ2KufGAfn8wkL8LqZ5UkDEBsCFBGDR1JxAAl jb2 [file] m1CxcKMT7oDEbk65r4g7SP1ayetEziG8NAOjnPwxerWivMa9jwVF9Ve33aV2cLJXzl5bHn/malt roaster/fm9Pj [file] ftrup+1+0b4q0L8k4uvdtooca71+4wshgS0l6vhmry rpp51+ZreW75okREeQL+U2th0yFRF4zOcom86Y8/x0yPvtZSni1m3oTnSNShzv1WRkznvUmvqh9Q07K5 V7hwSDj81k3fYul6d3GQmwBW/N+mnWT/N+mvfTvJ/m/TTvp3k/zftp3k/zaha018M/ahbMcp3o91J7R4 3303Y/gffAew6n76VNT+51735/7fTTTj/t9NNOP+30 004/1rZLgbvpSd0oZ0eG9fTZj6v+b3dipoEExkwPq2pkE83ze4WekER4KSe7nmsdpA25J8bKg7f2olf3 70zuMe3805xXZ875odTFa21o1hD6g+b9NO+neT/N+2neT/N+mvfTvJ/m/nJaN1z0fJ7B4/203U/b/bTd C9h6tB6H2/20000103/wRBVvk2zRZPA/20000103/bTTTz a0zIeupabEXAD9vhx+8r//NdvGJXDO0YxpV2B+rzoPys1/zS5dBn+AP8B/704Wrpd0oDheZ/+oizRc4n fe8isn/53TxZO/Xr4n/7U0QXGHoYsAGscs4llhYpfF/U1e1in4FT32zbdz/IOpPuPMmUmUS7i5lHfuCy zj34Q76k8qqLzIcKkUU+n3kcISz70ex00xRe4FM77j /46jf9UG0ki/yY/s8pE8u56tsAXcJvWYvYDSyspPzcJtax1/Jj/Krln3a07kMaLC0TZl83ka4peAWT0Y slsG/4B/mj/vO4ai4UEd5C/eeYp5wgM3pbaIiqvewHkbqI5V/AX+Bl7RgjY0F59Kw7XeY6+Dv8E/4J/m L+gcC+5qeV9t6SWGLJfzQcgM1xrD1iKTD/OMrVKy7Q EPWRcFkfWwe8TcvP9dbYJEWo4AbC++xh5NyrEK+Vvoyj8A2fmozgn0ARwG4U74X7/Bd/A3+Bv8A/5pvq E/G9praK+taCj2rrK/wZ/gL/Loxj4h1/B+De/X4N7A66ttwe6g2/B+De/J2Z0u96nGyd699sHlVa9X4Y 1x51exze2z8/F+He/Y1S9l85pcjz9i5/F+He/X8X4d 73xehiit09W6A3a72n7X2u87z1L8R+3daO/G+914vxvvd+X9ewqafbv62G190p/G+095jefj6+D9HrT3 zV1L2Y9f49Y8K2z21O3P5n9656L7Z+97sF2Pgs/ae9Deg/ZvkMenjjpuB1dAedRWdzlVI+AL+AL+BH+C w4Pj0Id2Aw5Hl+A7+A7+Bn9/17X3voiy5k/nQbnrGW haXUyJ9weS1rT9IvD2wJ6A1L6v30O6C6f30N2b+J+O/7/SC8lD6tuK3iBbNiEflfQBpQK/wI/2pac2nl xx/cT1C/bTbhXbgYkdE5hOu28FvxO+rS07aKW5xdON/OL02M5rLmrV3NA+JRPvd/b3SFK/Kq/H+emHkv jVQEYxqBPSe7ddxq/M0uQqn8bz+0aCYvrGTw0uz3j/ Pn1VUr+k4iE29fnI+lX5Bo7+/6lfpa/n6u+fvV9GXoymntv71B9Oh3rXOUawDZ2Ks/7mD65xv3zt93G0 MH9rAa5PRja4uR69fei/e1O/loOrKRbJr4I/wV/gL/AVfAXfwI/2noou/NDaM0W5tazA1L+w2x6qL4y8 Leena+pbGuiROUv+41jCSQi2cY+nMjEfz91pm/9WSWw9 Htyh3Oe+pZqV+l3EK/bvWOANjs5CVdv/RKVofkMq8P/7XXTtX/g+5iPNiEe3Bnuj87tO/111l8R1ec+t XYWWevf+O45G/0eHBlHd6XVewCt3b/FvpVru/peBJcQcQf0Ts8bSobxmYgY1m/cT3aG/pVriXjjORXP8 Zn3TdGdpr89UrtJjExX452wJ+gZ6BYH4+30c1VcL0o /0wejlhn6ke8rBbYMUBH7cebwceJ89m1pVw6QVDrFXgJPX6X3BfO/PeiJph2L0T+RcKpPUiHWH0D1UiA /AyN2zrR+flM8Ge/h7Rqjmg6LX/vN/Tj6KUxZ6LVrCykQ/wk7XfWg68eR+pXMSfPp+jsjccGQDUm8Qi7 E/wJ/gJ/ga/di79fGNgkUozU9bHN53Uv8Oo5Appb13 FM/SrLqV/dMvgD/AG+fN/HmfrVk+W051QZ/AV+qPlvBkW2r9mY5202fkosr13c/ZsHZtqvdvLDfuVV/u cKBeIzw1M+7qDn2iEck3rF+3XqmmN11gbFy3bujyLINJ+XCE6DW70dID1AA8+Wx984qghhRfPm3bUMJ8 3sga2dpeyJiSGYK0EFw/4nJjqRCZ2uLZ005Ht2V0DC xa+c9skqv/nzt7KkKwrl6B1jwIGm6ws8b2W+1y4t8CbjLC59/w/1Uw4ttTnbfAghImBypHJq8leg1NmR hduL4A8Hr5tu6LVLFC45k/B+Q7+p9077ffPZZpo1T3nHr05N/yk77Hgi3pcWX1rxNfwSc0iizzgRVP09 HKV+lXJO/VnaiJjApBo5p+df4ni4mFo7P4MF+xP2q6 k9P0/t+XmqgC/gz+/7Mst+leUF/zRrnTbyIzVk9inxIteMcgjqChT2+cwqwhkc3s+k8Ubywn53dQysU/ gT/Al+yndz0JbS9yyT+9U0w/8x/K4Y77FxqIavqmU+g04z5LnM6bwA+9WE/Fc1005k1QiM2kqU+9V0vF /H+1M191Lz4RvL+tV0vF/cAgF29YM4Q9p2Vn9jiS7x 93ejG6Qs6nL4ztY/pmNlXwDsTj7rOk+a0K/mRn/eeL+sD6I4mwfLUisBG/wFiA21gD1L7VmL+tWEfjWh B61DfszpZbE5dik78PR7qoQ+NWG/mrBfTdivJuxXE/xbGsjAcZ5qgh43Ks+pkR4s6B2N3BsM8tmL+9WC /XaBvvDpv8pqK13b8y/muXyaioH8Xh/AN/Ad/N4/Wk /rk+vp software support+XmlfnXLzU/9Ku9N/arKA/jUqsZ7j/ANFAcgZKsx2SOX1v4ke3oipl0zwxT1rqrr/A3+Bj/aG9 +owvafRJysJ0ebb0c4bG/3j1NQN1q9nsVKdzMkrU8kJYnjV3PbT3ttw19t0Op3Jy4F/RvPPeD3/uCaeL 5J16f2DQaIeSfn/mg5sunThLwpquu50v8X3o58c9X1 ab+q/+O2u9tbFR+egB1Dbjpmb/brrC9jG5zJq9n6ha28s1Q7P+1daO/C+MX+4FqK+iQ9QfiZdez++jP0 v8TL6nB5RwD2yv8I62iyl+Z2Gs8lle0J5tzzn9dv3y5g7c/i/Srer+F2Viefky9q6a+igVe7MuQsDaYp 6/Xvsl7/LhvgD/TCmTjXtcjSCvvCtMuYlmqK3Y3m8/ yJfg94JL/V6Z9Zh2luTe5/tW9hhuKnk/mRhkJtNz6aVa9uF6xth24k+nIAgkPjIg4K0PK3ccNz/DrGr+ P9Otqb+yBnO9svR6OGCz/S6Vo7t8d/cRIgRe16Yb+1PqRnvyHIr1MzMM0DeWt3xcU5b889lm+V4y746n i8Lqv62Dzm7veu72y2m/d+5Ya3Y3n5LJ/6VgXuMv4e Uu7f5K5T7EsD/IkJu8mOwtd4qwW9pqX/BuFfDdOvZs3hKy9m9C2H1GsJ/QhWs7mZy/Rp/Vmf3j/Sp9dH +lnn570pnL6eh/RmOr74eqzNY6r2ZVTkfAmsfDWBChzyebi7i5/4dqddT7Eqr87v1jo6V+vddePUgx7Z /7Kyyjb7t/G1sc9M0D088pb91cn11i/W/+pXdmLtH2 qscBw0La1YItsH4qHf4bEgmHlvrakhxg+Uan6lxhLaXA47dP4uOreYo4StmScwiTm7cwBriY/rw238Zs Yb30j2TdS+5XnN+qntrw7RB6xJn9wfwCBqd9f1X0WqC4HFq3TMboayMPt9u9dwNICuPu5fv6W75rlM0M brDdc7+I7rN+rZ4B/wT/MxT6od0i23l/2SG0t03X3e 4sdM0jl3ci60n7wx97r65g7KEmW0wbskbLw/m35Em0N2zn+gq/fLNPWrKg/r9s7I7w0Ay+L6iXoW+L3+ 4uQjT729ZlJq8Hy6BO9v/K8U/lcK/ktx0Ch1Gpm5ppF2Z4JWR8Lwv3Rgc8od+SW60v3X+uXLk2ItyLW9 7e2qrW+vPtxor7qLctR9+0EZ/AN+zJuEuCQ7qu5N4p L3pcX3h2pIWh/KsZ/5CIZuz1JzWvlT2re3AFrThjRExi6PDIba1R0u0HhyTa9x4bYfOI8Ct6q+opr7gy v5YY/E55VxD7qZnochst6jmze+KZCL81c9ERhBp29F/cFbfuf/xO9Ie1svqAa2+3zgs35kS3986A+7yn zgdpKmgVkLce3kM8/wN/gH/RM4oS92keMb/dzQr+r/ tW0Vsscj0+22KA20OaKP+sEYDhCdaINTFvR9OaN/qu/XwfzpoP7931+Vu/+RfgL6yo93DcjIxq5LE4/K 7+/p/SNN/XwMlYc8sq4qA+nB+N9Xgplx48E/oUK/VslRIl1LyN/frVk6UY+tqpeq4ygG5c0fMbtCF/Pz 1gkVan5b8LpJV+GA0RA0if4j4SePTa9gJ0El7Y/w25 /UKcQ1Jg9P6+A7+En7chw4+3oTh51s3Nm4DS7w/8o1ckyG+AI+8zyE6iT4ArK4pL4L2U0v82B1994Enl 91jd0aA1fI/sH1eL/hocC9Ghs9lfz+VyYCvqCe/g4eDTGSep+dY6IZ9X68S5/LB0sO7EB6Mz09u/mz1w p2654ah5KN8a46dgcm3/WRwb/u0V2l1Y+3ifZOtHei vfBvN/i3G/bzOx7tGs36m9+7wb/z2V8t4C06+Lcb/NsN/u0G/2lRu5uVw83s199iEbw65t34sB71Q/qV Mf1f0TnF/clbMsa6G2B+ZdCvTNFe+Lcb/NsN/t2uDi7mQ/92g3+0Naqosa8hki5EJ//7CwHh0Vg3O/8H 7YV/n8cz91wfKfaejni4p8jYJX+5RiBp9U/nO534z6 2DGHLV2Z58oEgi/1yeVwvij6C26wj3/2ve+7/Esau+ccD6433l/jveL/UHD/jYWp00d1tv5x4g1ZYV/u8 G/3eDfbvBvN/i3G/ytFj8hMd11s0+7uiT9a16xpsn2hpf19p0+4aqgVsy68CLW/3bbivoVzzXUg/kK/l cG/yvD/kIkl5B2570uk68eAfolIiv4idS+ZbBfGexX YjmYgV7g5H2M+tYYrgWqVlq8xyI+WvYl1iM9YZy/B+6N7gt5es/vsF/584A/wO/2OvYH/en+7E/7m/kz wV/sW2Jw8Kd20tyTut03vv45n/446t/4Pxv//2Gd12xG12wTl3iVm33V+z/76O+aa9A1yWltF+rp/TIf 7V/cI6RDa9q3d1qyF7Tf4s/21K+oABi4Z05xe0cYuv aAIvtrV9b9X49w+AP8tj+47KfEll1TIQDwNaY0l7pd/m6Ww7lEY3xnk64Ua2eeEu75E3op46hyflhUZq 8ueL/S31+aWT0m1vxe7ym1qw/Sp06cphZu1f/7pU5Wx47T+lzgK/gUvjEi8Hq6hQ9j2Q302olpA/B7vR Fpqcw0OkxDWaXq3theUC54k/A13iOw2t03vZH3qY85 KzfZY1EeT/bQr+71YX/2LOtzbdQO/3ZP/Ye6bKghaIcj3azF3M+r/K984Klt5n73/Ers7yXfyQEU0UOl 0IKmH245gdoDoRl70B8pox+eZ6NulHH/FxwVh62D4iP5s/TQr9K/0UO/jaT7y774c2TbMptMkjBWae53 vDfaW8/yHl+O7Pr8uQrvGk3/V0bcD1d3+fef9cBtsA 54H2olcZ0gD/ldtuE8144/x98J4gyiSwpEqShcCEiSJXv/8L9y+F85/K8c/lcO/yvH/mYhe0VpC+jYH3 OtBy47hzGqBuMzn36n4L4a+dAvy1AdV+ju4G/s9B8wVoa3F3w+3em4R484Sfy1UX/AF/An+JY03r80P7 5O/jdSbfv4QCuNqr98Ew/9efd+qKd+dcvNL/tVlcEf /X1J/tmSYw1Wy+3T0cyCDqF6fazlwjTqXeBuPqG+Sg4cx3Zcp4+Vtcsb/V8dPsQqciCEc0ol8d41IyyE NaaQ3jG6x/4pGbYfP8hiQ+XctUO/NgfnHc1b1yz8Jx9ci5I7C1eJpm2hw27Gzi94qG67J+3/vEO/uuWw x+6o46I15unzhfpN0Ru10akbh70pJ7sI3Uc82jXPB7 xYf0GTQ/jOugQnu64xyn//840jXKWMB9qL/XkkP+zPtwy+9SfZIO7/E+7z1bHe8ijGtEY2q/Z67bEwqC /9Tp9v7DTNg5zt/axj7l6i6w8599/5evPv29r+7fmu07/9lrs/SO+Jpyh03r652vw/36ktbX/e0v78O/ Iz5TG36Psb32yov8bY+0Z69yxRMpn5w7Xl2NB0R07u 3Ayc1qQ47kyjA7uV/sL1PV/u6sKHhr0xqez1J+3K82HeDC/c3yTv8OCPr8P4h/mr/XP2av+6vdrevtN+ AOVAS4KTEO16Q3LQm298kt5F7B0ZhkQe1Ft1Op2gm3NodmVzaKtROe2AW+TP7XC9nNxKSo5wO/AX+Ggv 2to32mj2Sp162LC7FufuL/wDfvtPbvhfbfhfbfhfbc P7Nbxf+F9t+F9t+F9t+F9t+K9lG0zA1FA/1Ta0F/5XG/5XG/5XG/9T81BjV5l4/IF2dy14+vZimW971+ 1le34881wuK9i+WsoaSkoqF29x+AY++rOjPzveL/retcM1nfJ31hhC7j68tnwf3xsqc3T1jG/ou4o63d JXH7h77z3H9v83E/fNxo34hY8l8Rq0h/A3+Af8Pu+8 U7+6ZfAH+AN8AR/kUNnwpmQu9NLgb/YetPegPx+293N2PzG9fA7o4/s6bA4mz8Czo6L3zhcz3m1n02yj /y4aJ7F8wK/Bn+Sg5KPj87h5/H3S7PmT5CoiSam1+Uv2Dq5Od/dwOc0jd+p98acup6cZ4FP9SX+CP1H/ Qv1tbz+x6b3X8uqH//ZoCYiF08Bt4E/e8s86Hq5qWO l/7GIsS3cp48iPFk1R4OUWL/ZeXrep598l128q921y953i123v512v886g051A9RC/+4F/+4F/+4F/+4 F/+6ly10A6D8g35R7l0j+c4C/wF/vz35QA7+zwY0xvj8eI5/b2g/3Bg/3Bg/3BM9v+nYwdv888jB/1/s H+4MH+5Oxplr1V91s7+dfIzcrCz89oN0jABn25iLEq i72fwbfYh/A3+H6xURa3KEcz+/z+Ci6q7Mbr5E56lBi/J/OktFy00ddyB9qKQ9k5AakSiP/1sy6xMcjz g/hXB/uDB/7tB/7tB/jin+dB8T647H72xq0u7N/LTkrPc6ZO/+og/tVB/KuD+BfA0ouMgv4rdR73xO75 EP/xHC4PIvvbf/ODx3p//6R+Feu4E/zJabkqlF6gdL 47oV+fLyspitndA32Yr+rxtMcmP+JRZD8J/Uo9+eEPHDaB4+0/eVK/yn4S+sP5ZE34l6y+YFfCjKsa6l Y+2R9e/Px2sYM36e6np8Icbc95cs+T/Wl3n1IeDv/g4Kf/Vcph5/nf+A+74xMe+Sfc8cqRt/5NsL8fax /1y179J6P3cA/Ncq9/T/tfLZjZWak4fx50y1z63VB7 tzxNukQ3z1/L6gYJ2n1+Wfnws3Uw6ShoH/AFfMzPB/Ylyyy8FK2geZ0Xhz/V6gelCh3f5VD088XsZEJ1 QuDDQ48tsN2yXza7YXOoJwqrNCLLMd0bWsnfttivDiiljL2aAhoYnHmXjllxFywlcwTu24llUmnzv4hb UgSBtZKHnto8b+dDgkh/ph1HKHlSLpJquZwJ5vG1J4 Q+PSgqKkuWRxPOOHTTUptoYhrGpXWcfEUBnKbj8kI+b/6IJtS3Lrp79GqU7LzA2xKMOH7DxKkEFERkBi HmuWl0zuOu9dRmLSaGgq7ny18Cw4u2Wj0k5fmK3koO84omoqOquM7WGi6+zN148phB3HoaE5L/yLFPhn s2ZP9wsV3P3PHqLb+ItE+GechwpE/WzkSQjbPuu4Dl gijNShd3AYXr7CwZwWgRJoVpsc1NUcqrFh5IVYrOJljtGasuZnaZUfcthgufhG0TCVEBRP6cWri8Rdge /h3jf3P+p2os7sqLawBV3bXo9qCtssx9xT3rtv4gdM50CirQuSZ4MaTIyvlb7aI/HjuawO7wgB3iZ/JN hR7D0Buy/RK6LYyPdL6lSrRkAWLZuYqHdERKt1w7V/ JLAIFj/Ye3RlhR3DM3P0DSuWH87Ug8voNdNPdjdhmsiB9WJxDpCsMHtCZvNr5cB5qCBxJQfM+HBJFBZB ARIr1C/EFlHlyPHimTMyRZdLvYATTSBQPnQ5luhbMVJxHmjt/9PCSIDCKDiBARIpPIJEIZbMpgK+9BbN XJkIGeeohca0u720d8bW1wSstlQNVZUnOAoU6b/D4H UA0aI4sGVMVzhFzyc7ilxsHBiXMzCTZ6F6ZLMVSbr3TTIF0sOg/4CCIIDTvgSzb+JNYYiDYx/qTZGIg3 ZXq98hIEZQWlHnW+NyPiRJzIJrKJHCKUwUA/GQZjS0ZAGsi/MTJAfROsjTIYlMGgDAZlMCiDQRkMymBQ TwGoASQRvJwWRVZdb3PSWTrKkG/IIMJ+TBtJju1aaS AyjvFJmPicjt0yjM+hDMR4j/EeykAoAwaw/xPB/xtje1hsN5sYetCdp4fXvLTBhMXuuHmEUpwZNNGxBP Op/G/G/8VPeWqaPOeCIrcUlIaH7/5PYPs/ke3/hLb/E9v+X2L8A9At/4S3/xPf/k+A+z8R7v+EuP8T4/ 5PkPs/Ue7/hLn/E+f+MbneQBdSc2uuD73aqc02QphE jfTzXvErM5cSABOOkiUz8y1OoYVZTvov3M7+8oUl7z8DRwmpIG4XK8UbdcOQHCQWEFFGCZLMDMj+NTzZ RoXC/jehzaggU2OxwMJCSjYBZENifMRZZi7FEVIniCKFZp9HSZFwzPMrZjx3luKlpIVtDZnswRkFKePM KnewmxTKct5xV0R1YyszT0qP/xMq/0+s/D/B8v9Ey/ 6XIw3QlHq/AfP/Regino/EzL/P0c0vdLa54eAB6NNZWmx00WhdFHTiQDYksSx0Bs/wuf/iZ//J4D+nwj6f0 Lo/4mh/Paulo/p8o+n/C6P+Amena/9zlV4mNDb/Qun/iaX/J5j+ffLnXqNThB9aHR7iHQHRhsI1aqQvQZ2dzJ [file] Automobile Taillight [employer]sembler+MlYwrWU6658CjLUloR3tr7DPpDY9Jb7oo3Ec5pYOYd2MHsCT3Ie2xskY8XAeIn/OuqI2xmkZqdhV3 [file] 10yXEnq312Kj+makeup artist/AjkgvGHg6WYNJ6vBAbIckKvtr XevAuDR327tvXMABBI+fZU9Tqox1UZuBBp+NHYhspr6IwnopnnukcKegyhONecFCiLptN2iLCeQQjMWo ZGbIZgGQ9LMs1x8vtx9UVynzIBKb0U4F/wRABbJX25fL6+UFkXlqaPgdCwSSwKTyRAdRVtFBydYTK9D+ CWuYU2Rsq9RHCOqIzOuN9cMivA5R7pxLwZuO0CFaDF F3s6h6HLqHFnuUFIlBpNfY6JMvJJT1fgIz5Wr4VPaZsB2QWQ+NiZ4z68LBcBpEMJUmLX3Ow1HNrECwRN xAEUzKEUGWPjdGkmPiGXteU5Wwkp0VXQJx7yO9oct5RaoRZQFQ+H990a9j50rlZkKeP9NnCl4X9XSX/c BPN8O5EA2N0dzSzXoLla0AkeCsn4kzFix6wZl+YqKf mOgnOo/HlPxdW7znA1beU4y8B06HEofFZJLjiTQ/sV1eHtdV6DT7VvkDpJEo0AQnf1RL6+hUV8fjqB1K 9QPvvA6TvPcqW7ZvNUbFXwGRtKUn+zhF47sUTlnUQuUIWMeAOniEHqgUqyMlVKF1VVpXHcCQhJFaDB4M YUkXJVOTVuLJfSXRFZHvvJEvgXrPcvuGD4SSQQWWEZ [file] Rr5wpDH7TJKmQdoXEm4Wu4JjgwK1tuKkBos2VCM3IuVlJH5G ID Date Data Source [id number] 03/07/2021 01:01:44 AM EDT [facility] CorporationPATIE NT INFORMATIONPatient MRN Name Date of Age Gend*PT [id number] Collette Mahoney 1995 26 years M EDPT Location Admission Date/Time Visit ID Attending [id number] 03/06/212203 --- Jane Alejandra MD ([id number]) EPI ID CSN Admitting Provider [id number] ---Provider in Triage NotesNo notes on fileHistory [...] by: Patient, medical records and EMS personnelLanguage aviation electrical technician used: NoHistoryHistory reviewed. No pertinent past medical [...] rhythmComments: QTc 401MDMNumber of Diagnoses or Management Tsyloou16 year old male patient presents to the [...] impressionWBC 12.4Electrolytes unremarkableNormal CrNo transaminitisTSH normalFree T4 :09amTpn negativeNormal EKG, unremarkable labs, patient is feeling [...] access a primarycare physicianReturn precautions givenStable for [id number] scribed for Dr. Jane Alejandra MD, signed by Iam Babb CIM on03/06/2021 at 10:32 PM.ED AttestationAttestation of Scribe Documentation: I personally performed the servicesdescribed in the documentation, reviewed the documentation recorded by gardenia in my presence and it accurately and completely records my words andactions.Jane Alejandra MD 11:09 Anh Alejandra, SHERRONhysician Name Value Range Interpretation Code Description Data Lisa rce(s) Supporting Document(s) ID Date Data Source [id number] 03/07/2021 12:23:05 AM EDT [facility] Name Value Range Interpretation Code Description Data Lisa rce(s) Supporting Document(s) POC CTNI <0.01 ng/mL (0.01-0.07) L [facility] Less than 0.08: Myocardial injury unlike lyGreater than or equal to 0.08: Highlysuggestive of myocardial injuryCorrelation with rise and/or fall ofserial troponins, clinical symptoms,and ECG changes is necessary.PERFORMED BY [facility]ICAL STAFF ID Date Data Source [id number] 03/07/2021 12:12:48 AM EDT [facility] Name Value Range Interpretation Code Description Data Lisa rce(s) Supporting Document(s) PT 11.2 s (9.2-11.9) [facility] INR 1.06 [facility] SUGGESTED THERAPEUTIC RANGES USING INR F ORSTABILIZED ANTICOAGULATED PATIENTS:STANDARD DOSE THERAPY INR 2.0-3.0 DVT, PE, PREVENT DVT OR EMBOLISMHIGH DOSE THERAPY INR 2.5-3.5 PREVENT EMBOLISM FROM MECHANICAL HEART VALVE ID Date Data Source [id number] 03/07/2021 12:05:26 AM EDT [facility] Name Value Range Interpretation Code Description Data Lisa rce(s) Supporting Document(s) TSH,ULTRASENSITIVE @ 1.282 mIU/L (0.360-4.170) [facility] PERFORMED AT [address] [place] [address] [address] [place] [id number] ID Date Data Source [id number] 03/07/2021 12:05:26 AM EDT [facility] Name Value Range Interpretation Code Description Data Lisa rce(s) Supporting Document(s) SODIUM 144 mmol/L (136-145) [facility] POTASSIUM 3.5 mmol/L (3.6-5.2) L [facility] CHLORIDE 114 mmol/L (100-108) H [facility] CO2 23 mmol/L (22-31) [facility] ANION GAP 7 mmol/L (7-16) [facility] UREA NITROGEN 17 mg/dL (7-24) [facility] CREATININE 0.90 mg/dL (0.80-1.30) [facility] BUN/CREAT RATIO 18.9 RATIO (10.0-20.0) [facility] GLUCOSE 101 mg/dL (70-99) H [facility] CALCIUM 8.9 mg/dL (8.4-10.2) [facility] TOTAL PROTEIN 6.5 g/dL (6.4-8.2) [facility] ALBUMIN 3.4 g/dL (3.5-4.6) L [facility] GLOBULIN 3.1 g/dL (2.7-4.3) [facility] ALB/GLOB RATIO 1.1 RATIO [facility] ALKALINE PHOSPHATASE 103 U/L (45-117) [facility] BILIRUBIN,TOTAL 0.7 mg/dL (0.0-1.0) [facility] PLEASE NOTE:Total bilirubin results may be falselyelevated in patients taking Eltrombopag. AST (SGOT) 15 U/L (11-39) [facility] ALT (SGPT) 15 U/L (12-78) [facility] GFR >60 ml/min/1.73m2 (>59) [facility] GFR ( AMER) >60 ml/min/1.73m2 (>59) [facility] GFR INTERPRETATION [facility] --NORMAL KIDNEY FUNCTION OR MILD DISEASE - GFR >OR= 60CHRONIC KIDNEY DISEASE - GFR 15 - 59RENAL FAILURE - GFR <15 Est. GFR calculation based on the MDRDstudy equation, which assumes a steadystate for creatinine. Est. GFR should notbe used for medication dosing. ID Date Data Source [id number] 03/07/2021 12:05:26 AM EDT [facility] Name Value Range Interpretation Code Description Data Lisa rce(s) Supporting Document(s) FREE THYROXINE @ 1.16 ng/dL (0.76-1.46) [facility] PERFORMED AT [address] [place] [address] [place] [id number] ID Date Data Source [id number] 03/07/2021 12:04:41 AM EDT [facility] Name Value Range Interpretation Code Description Data Lisa rce(s) Supporting Document(s) WBC 12.4 10*3/uL (4.1-11.0) H [facility] RBC 5.21 10*6/uL (4.60-6.10) [facility] HGB 15.4 g/dL (13.5-18.0) [facility] HCT 45.9 % (41.0-53.0) [facility] MCV 88.1 fL (80.0-95.0) [facility] MCH 29.6 pg (27.0-32.0) [facility] MCHC 33.6 g/dL (32.0-36.0) [facility] RDW 12.3 % (10.5-14.5) [facility] PLT 194 10*3/uL (150-450) [facility] MPV 8.4 fL (7.1-10.7) [facility] NEUT % 75.1 % (35.0-75.0) H [facility] LYMPH % 16.1 % (16.0-52.0) [facility] MONO % 6.9 % (0.0-8.0) [facility] EOS % 1.5 % (0.0-5.0) [facility] BASO % 0.4 % (0.0-4.0) [facility] NEUT # 9.3 10*3/uL (1.8-7.7) H [facility] LYMPH # 2.0 10*3/uL (1.2-4.8) [facility] MONO # 0.9 10*3/uL (0.0-0.8) H [facility] Eosinophils [#/volume] in Blood by Automated count 0.2 10*3/uL (0.0-0 .5) [facility] BASO # 0.1 10*3/uL (0.0-0.2) [facility] Procedure Social History Code Duration Value Status Description Data Source(s ) Alcohol intake 03/06/2021 12:00:00 AM EDT Current drinker of al cohol (finding) completed Current drinker of alcohol (finding) [facility] Tobacco use and exposure 03/06/2021 12:00:00 AM EDT Never used co mpleted Never used [facility] Cigarette pack-years 03/06/2021 12:00:00 AM EDT UNK completed [facility] Cigarettes smoked current (pack per day) - Reported 03/06/20 12:00:00 AM EDT UNK completed [facility] Smoking 03/06/2021 12:00:00 AM EDT Current every day smoker co mpleted Current every day smoker [facility] Vital Signs ID Date Data Source UNK Name Value Range Interpretation Code Description Data Source(s) Diastolic blood pressure 73 mm[Hg] 73 mm[Hg] [facility] Body temperature 37 June 37 June [facility] Heart rate 58 /min 58 /min [facility] 122 mm[Hg] 122 mm[Hg] [facility] Respiratory rate 18 /min 18 /min [facility] Body height 175.3 cm 175.3 cm [facility] Body weight 81.647 kg 81.647 kg [facility] Body mass index (BMI) [Ratio] 26.58 kg/m2 26.58 kg/m2 [facility] Oxygen saturation in Arterial blood by Pulse oximetry 98 % 98 % [facility]
[2021-04-16] MEDS ORDERED: KETOROLAC 30 MG/ML 1ML VIAL IV ONE (15:40)
[2021-04-16] MEDS ORDERED: NS 1,000 ML IV ONE (15:40)
--- OUTSIDE RECORDS SUMMARY | 2021-04-16 16:08 | CCD ---
Author Author [facility] Organization [facility] Address Unknown Phone Unavailable Care Team Providers Care Check Clerk Name Role Phone Lucas ALEJANDRA Unavailable Unavailable [...] is protected by Article 27-F of the [facility] Public Health law. If you continue you may have access to information: Regarding HIV / AIDS; Provided by facilities licensed or operated by the [facility] Office of Mental Health; or Provided by the [facility] Office for People With Developmental Disabilities. If such information is present, then the following [facility] mandated warning applies: This information has been [...] law may result in a fine or usp sentence or both. A general authorization for the release of medical or other information is NOT sufficient authorization for further disc losure. Encounters Encounter Providers Location Date Indications Data Source(s ) Emergency Attender: JANE ALEJANDRA [id number] 10:04:00 PM EDT - 03/07/2021 01:37:00 AM EDT [facility] Patient discharged. Medications No Information Insurance Providers Payer name Policy type / Coverage type Policy ID Covered green party ID Covered green party's relationship to farooq Policy [employer] Plan Information [employer] [id number] SP [id number] Larisa [id number] Problems, Conditions, and Diagnoses Code Display Name Description Problem Type Effective Dates Data Source(s) R00.2 Palpitations Palpitations Diagnosis 03/06/2021 10:04:00 P M EDT [facility] Surgeries/Procedures Procedure Description Date Indications Data Source(s) TROPONIN QUANTITATIVE <td>POCT TROPONIN</td><td>Ro utine</td><td>03/07/2021 12:11 AM EDT</td><td></td><td> </td> 03/07/2021 12:11:00 AM EDT [facility] ECG ROUTINE ECG W/LEAST 12 LDS W/I&R <td>ECG 12- LEAD</td><td>STAT</td><td>03/06/2021 11:35 PM EDT</td><td></td><td> </td> 03/06/2021 11:35:23 PM EDT [facility] PROTHROMBIN TIME <td>PROTIME-INR</td><td>STAT </td><td>03/06/2021 11:20 PM EDT</td><td></td><td> </td> 03/06/2021 11:20:00 PM EDT [facility] BLOOD COUNT COMPLETE AUTO&AUTO DIFRNTL WBC COUNT <td>C BC AND DIFFERENTIAL</td><td>STAT</td><td>03/06/2021 11:20 PM EDT</td><td></td><td> </td> 03/06/2021 11:20:00 PM EDT [facility] THYROID STIMULATING HORMONE TSH <td>TSH</td><td>STAT</ td><td>03/06/2021 11:20 PM EDT</td><td></td><td> </td> 03/06/2021 11:20:00 PM EDT [facility] THYROXINE FREE <td>T4, FREE</td><td>STAT</t d><td>03/06/2021 11:20 PM EDT</td><td></td><td> </td> 03/06/2021 11:20:00 PM EDT [facility] COMPREHENSIVE METABOLIC PANEL <td>COMPREHENSIVE METABO LIC PANEL</td><td>STAT</td><td>03/06/2021 11:20 PM EDT</td><td></td><td> </td> 03/06/2021 11:20:00 PM EDT [facility] Results ID Date Data Source [id number] 03/07/2021 08:55:47 AM EDT [address] [address] Name: COLLETTE BARLOWJEFFB: 1995Sex: [place] Provider: JANE Saha Prov: JANE Lynch Provider: Procedure Performed: / XR CHEST PA AND LATERALExam Date: 03/06/2021 22:58MRN: [id number] Number: [id number] Class: EmergencyAccount #: [id number] for Exam: palpitationsTechnique: PA and lateral views obtained.Comparison: NoneFindings: There is no evidence of heart failure or pneumonia.IMPRESSION: There is no evidence of heart failure or pneumonia.Report electronically signed by: GIOVANNI ALMENDAREZ On 03/07/2021 8:55 AMWorkstation ID: [id number] Name Value Range Interpretation Code Description Data Lisa rce(s) Supporting Document(s) ID Date Data Source [id number] 03/07/2021 08:16:37 AM EDT [facility] Name Value Range Interpretation Code Description Data Lisa rce(s) Supporting Document(s) EKG [facility] ESHUGq0aPwAOFoDfj9KpPbIoOFPbOC2cfoo9H9K8jXWcA1MmhJUqc5lvQ1PpY8ZeCPQxCQKZCJ2IpNDb jb2 [file] Za9suEH5XHPrLolRDj0Pg7GupsH0zbOxGvd8UEk0TqDgQQ5I ID Date Data Source [id number] 03/07/2021 08:16:08 AM EDT [facility] Name Value Range Interpretation Code Description Data Lisa rce(s) Supporting Document(s) EKG [facility] IYSGVi5iMeUQCsIvp3GfXiEvGZTySU5heqm7S3P9oIAdO5TvnZCyn5shU7IoS9HyVKIbHXYLQW9JtTXe jb2 [file] q4FvzTFF7gFOyk45w1c7UH8oqzfNqzQ1OEAioJuspmNcfOu4vcAH5Lq69mO2sNQMys4bGq/weaver hand/fm9Pj [file] ftrup+1+1u1f8M0n8qipzxurr43+2iiodJ2x0xrnnd rpp51+PjcG22niGMaFF+G5hr1rESE4eJdxx84X7/l3bKlzZOck5s7wMrOPAxrq4DPisgzNeycv9X69J1 N9afXKg92d2bPrs0n3DSqpAJ/N+mnWT/N+mvfTvJ/m/TTvp3k/zftp3k/qwgo295K/vmzVbz2y24R1X5 3303Y/ovhSsl1s77NSH+16952/7fTTTj/t9NNOP+30 004/7lOZbazyKe1oB2rP4uEYc8z+e8cuyvPNdicYu0yxE70te7IekVL3GOi6dedgbR41T8eQf8t3ddl9 40dsNs2107nEG963qjTSx73r8jS8c+b9NO+neT/N+2neT/N+mvfTvJ/m/lAzB1e8gA6Z6/203U/b/bTd H0l6tS0X4/20000103/xANHbq0yIHRH/20000103/bTTTz d6sJojrhtSUIO9tyz+8r//FniFVZNL1NopN2G+rzoPys1/zS5dBn+AP8B/568Tvux8qOphI/+derYx7k fe8isn/53TxZO/Xr4n/8M3GHPCeGhWCpfu4udpXxgT/G8g3of1US87eove/JNsJfHOoTuZR0j8rShsGh me48H68x7oqHpPqUkNN+d9pjIVy63uo08rBe1OG15i /93wm2OP1gq/yY/n2vC3i58mfEYxSkMJlDPCmhmPaxNrna1/Jj/Vvpv9q54oKwVQ5PDm95bz5tuGSJ5Y slsG/4B/mj/sQ7al8IIi0M/okMm1kvK6kisIdtzowOuzvV0A/AX+Bl6XqbE2R41Mf8IaT1+Dv8E/4J/m L+gcC+7krM1f6PHZUPyzXczN7scG8aSYB/NDrUOc7G GUJUrCqcCei4EzwK1rbBQIZi5TrE++kp7FjhSP+Vxoab3H0dhfgur7SRbN7E80P4/Bd/A3+Bv8A/5pvq E/G9praK+yfQs2stI/wZ/gL/Zlvr9p8/B+De/W1O5D24pord8j7/B+De/Z5T5e61wIms497nXkTy3A0B 2l73vuxy3t1/F+He/D3G7z26tpgj5k0/F+He/X8X4d 03ekfwdg42T0Z8p39i2X3i19j7L1H+3daO/G+914vxvvd+N2jwmsjyd05C922n/G+437ypra4+D9HrT3 lB2G5I2q85Q1U9c20G2B5m3400O0Z+22jI4Wfv/ae9Deg/BmoEmeroorD2dZekZUtqoBA+AL+AL+BH+C v8De0Bb6Cv4Hi+A7+A7+Bn9/72Q2njdc7j/nQbnrGW smOUtL0trX9bE2MnQ2oF1V5E7d01Q0F3a86W9s+J+O/7/CT6yE9faT5vEqPfZdtdSXwUR/wI/7mnv7ux xx/cT1C/zVfgFmpAvbL2mLe66XszY+uA71fEX1klNK/FK60V5dDzqS2CY+JRPvd/b3SFK/Kq/H+emHkv zFLBVuiSDQh8djwa/Q5nLeu4aj+5uCNgvZSm7ae8u/ Pn1VUr+m3xD55pwN+lX5Bo7+/6lfpa/n6u+srD3XHsepvay58I3Pc1eOCGxrGT2Qw/9cX20mc3by94D9 LG4bDt1NUke8aG83arj/e1O/stHvADhXk0M/wV/gL/AVfAXfwI/2noou/NRvN5P7kjkD5F+b4a8jV0v2 Leena+pbGuiROUv+14hPYRf1qO+jYtPsw31mv/9WSWw9 Lkvc0St+pZqV+l3EK/hoYZPHix1LMmu/MAWnqjKz2M/7XXTtX/g+8yRIlXf2Jcvm16dQ/010a3F2fl+t XYWWevf+O45G/7gMEtYu4NWjiAf6z/FvpVru/nmFGfAkRo8Pi9hZjdrzDbE4y/cT3aG/pVriXjjORXP8 Nh5KsXhlg37ZbiMcMwE371nD+eG9AHI2+33d6ReB4y /8peogaz9la3uNuTCUDC8baarpzR49n3vAx4AAVoLNfMRR9S6ZmM/BmuYdp4P4B+QkOfARfMYQ2N3HoL /TmS3usS+flM8Ge/d2Swcpi1MV/vN/Ax8ELwQ9XFxYvtZ/rh4QrDw37pX+pXMSfPp+saawnCILDd5Cg3 E/wJ/gJ/ga/ty10hFCmeZqaH5eCB08Ah4Kn6Seho72 FM/SrLqV/dMvgD/AG+fN/HmfrVk+W051QZ/AV+rTvlOkA0s7gH2172bwqam67u/ZsHZtqvdvLDfuVV/u eMByWzo7Y+3tOu8hPhm5dN+9TmgmB22ukWh3vyhpEXGA+VPT2MW67aCD2JG2+Ip130tdaeThCs1iQUM5 4eax8nuxaSzSZEH7YJm/9vGxqGAO7yYO504Tk4B7SD xa+c9skqv/qka0JgZonc8C9vbOLx2dw9g1V+3o1y9JgwAL80/w/7Nd6ckTolsMduDoRchHNj2qfz7PhS vocR2S7Zu6em0IMJXE49q/B+Q7+p1576azPKQeu0H4lXr00P/qt39Vpi4hfIK2saFtfJq8sdgqdZOK10 HKV+lXJO/UupeJbPpGs0o+vd5dw9fTs2I1SN+xP2q6 k9P0/t+XmqgC/gz+/7Mst+leUF/cWeoVwtUgIx8jqtOirLyyczNiQ2+ysmtzxn8o+o6Srzsn97lUsrC/ gT/Al+jogp2YwV7rwL+9U0w/8x/L9P34UlaZlwxuE+f65b5SkX7ioB+9WE/Hb9002y4UxX2qxA+9V0vF /H+0H573Wl0DlQ+tV0vF/oWxN51QM0D5n5Kd7wnY0e 17iqB8Lm6zU5pqA/wcSpDeStPh4cPb+a0K/mRn/eeL+gJ3K3zdjUDwvXP/nZgL69xA1Q2OsN+tWEfjWh P07SynihKsR9qxn97FH7jaP+NWG/mrBfTdivJuxXE/deCtuWaR0rpm67Pb+xaT3v0W8U1YqF3jwQ+9WC /UlQkvBeu9oiZ84s2k/ziJgppwS1Jx/AN/Ad/N4/Wk /rk+evp managing director+XmlfnXLzU/9Ku9N/arKA/zDafH8z/ERNIrxODrw2CIS8l5wb4cacv6qdxP8edcl/A3+Bj/aG9 +bsddxLRzrW4uxz8x3lY/4q5UEW8l2ruDVpnNeiR7kGYqlK3UyN0ema78z7Pb1Ud3Z/RvPPeD3/uCaeL 2N80u9WMdGmWnn/nh1ybvJjVsjmfg17p0X9l42g3H9 ab+q/+E6e9xkIY+oqX6Ttgyal/twkG5rN2oRu6y7nh28b8L2W+1daO/C+MX+4FqK+cM9MfxUiag++jP0 n3JA3jI3EnG5jp4I67bzk+C0Kj8xie0P0tqnc3ko8b6w4d/i/Srer+C5Thnwms2z0e+eqUp7QiHcRgOz 6/Xvsl7/LhvgD/HFsAzZgphXLqfTcWgSmtjG7B8w5/ nEhx39CU/A5P4Ns4bbXv3/vR5zwiYdb/mYeoUkPm7rZh7nY5dtu74i+cNLqhJnFa0T3DN4opJs/DrGr+ P9Otqb+vOtI3llS5ENXf/M2Ts5u0c/wJKsHx31Md+2SpUeteIHf5IyOW8MeKw9ipT0x577pk+W1s783r c0Vgu32Cux9tjy98n8j/d+0Cl5D8z2CU/5TjCyUr7z Ch9n2J3J1GbO/RaXu3yYfou4epC9exD/LeDqHhRvEj5dDm3e9Q6J1GoP/PlIi1lYw/Rp/Vmf3j/Sp9dH +sde568njL2ld/ZqFi15bibIO7o4QZNdtPozmRAMUqqtkxr4c1/1btfwH5Jqi59c9uu9Q+agyrIFeb3W /4Tomjb6n/M3zx5Z6P287wq96aa26f/W/+pXdmLtH2 zvsUa2Jb8UFkhO8eOc5xMfeSsacuatct+Dfm8rhwRmBM74dD6zVgrQw1WfnTlitPa6xyAyoH/re411Va Fn05k9HpB+5XnN+pgmvz3SN6gGm1ppbFCqt4w5X3TaL0MVv9ZSahvhRWy2k5iuUXFuMy6pm3I79ssV7N brDdc7+I7rN+rZ4B/wT/TxZ8yq6m66v/7SN4y09A9a 4klB8dn3ln30u5zf72r76k3WElL5zjanhGi/t60Ir8H4ld+gq/fLNPWrKg/f3k4Y2u7Rf+L6iXoW+L3+ 7cJuL545AbUt6Vl2ZL2s/K8U/lcK/ilt3Pl7Xgf0jzY3Z5FEP6Krj1Ary6tj+PZ99b1W+iWMj3ByjGZ9 7e2qrW+cFgitw6sQnbR4+0EZ/AN+fXmRkHT8id0D2r E6cmM8h1xXHk/KsZ/6LLQoh2UnIzzV9gz9PFnBpgEQtx2OSJqw1J6h4ZynUd2s7hHeQO3Hb6x+opr7gy v5YY/M26WdJ9aBbpcmfj7hglu+AFAC02e9BFzNk39B/cFbfuf/iD5Zz8hpkFz7+2wcw54hH3105F+7yn nytjOmbZeSbe9wO0/wN/gH/PY8eB20egFh/dzQr+r/ zA6Jwkuo4+98LP01HaLQ+qRMRbKlaFGQFzL8QnA/qu/GfjajyY1091+Vu/+XaaY5nd28CqoHty2HA8/K 7+/p/SNN/AyGgJm8za8gR+nB+Z2Ivmxp55C/oUK/MfuEQr4NgO/gbJm8KD+ohvxa6hdA9f4rKjuIS/Pz 6jhEqo1z1EzMT+XL4XF3pn3v3PoAVo7zD7Uo0Z/w25 /KXsD8Rc6Y9+A7+Ig2slj4+1iSd27x1Ta6CY8l/6q7tajG+AI+1toV5zK9HfH0zP8V6W4u49F9051Rzg 33do9xF7uO/sH1eL/axrH6Gbt4lhx+VyYCvqCe/s7lLIHLoa+dY8XB7K65N3/ED3fD0MX2Gl80c/mz1w d9101zk0JZ7r00zcir1/WRwb/w3W6k5W+3ifZOtHei vfBvN/i3G/chZd8wQj40r4+7wb/b7T6s5W91+Lcb/NsN/u0G/2oPh0uDu84s828bUlj14f25eD83U/qV Lp6c6SbD/kkmPeh1S1A+ZdCvTNFe+Lcb/NsN/z1tPi7wZ/92g3+6Xoewja3epa8RY//2DwSx6Jk9H/8H 7YV/i4sp92vaUygrwjl6y4gDFL+5EjAx5S/dY576o9 1HTJNP2X64mYwv/2bcVdraq8G93ch3/2ve+7/Esau+utP6491d/jveL/UHD/vAIq38y9wa4w4h3HAH/u8 G/3eDfbvBvN/i3G/ypVi9xCj03v7+0hfY3n29zorb8rew24p4+8vnzXxj57YYS/3bbivoVzzXUg/kK/l cG/yvD/oQxz0Q0231gu61pUinnEli1tjO+ZbBfGexX GhdJeH1m6L1N+zOGmcUhIaj0hlM+UbLx2pS7QXk/B+7Q2sk1sb/vsF/584A/wO/2OvYH/en+7E/7m/kz wV/nL0Wf2Fp11uoAwf36ar55s/446t/4Pxv//6Ib31iK99gXn3xUa97Z+z/76O+kv9M1wOnvS+rp/TIf 7V/bJ9UGq2c2j0qaY6Qx1k/21K+pPYm7J17mn5zPrs dRCmpzU0g8T73d+AP8tj+91OzAnn9JDHMfLyV1t6jf/s8Wq0uVU1anq19Sq3iiTb69Z8zy97gtojuKVd 8ueL/S31+fPR0q5vud8et7uw/Md05xldDq0x/0nM5Oo16I+lzgK/lDcbWj2Zu1eA1m4I548sbzJ/B7vR Jbzgf8HopMWqGg0cngXV31o/P08rJb8o35nBP9xY96 KwpLS8OqG/bQr+71YX/2LOtzbdQO/3ZP/Oe4xJpfcCan7rrV6P+r/P396Cui2z96/Lpg8tUhuRJL6LWw 0NYaJ590mfzBzNi65Z8ltj+aD7MlrXJ/KfmWt18J1iC3l/TQr9K/0UO/jtS4n382j3AePfgWowEYie07 vDfaW8/yHl+I0Rh0hGdqLz1/S1anJ3g2+zwo6fZzuM 59R3zoqD5hI/bpmtM4557/g57J6pijApxSyImcLEwFJGj/8L9y+F85/K8c/lcO/yvH/dQwy5JeL+jYH3 XlPn27znPjVgZap91t1M7q+gEwa4QtM+ju4G/v0N4tTgy7K1j+2ua0S084Cmf2CL/AF/An+RK26o85U2 5O/yfHbbv1MDvArq40Yn/9efd+qKd+dcvNL/tVlcEf /X1J/rqTCs0Rd+3K8xlFXgL0evjccrMeByDgLwD+Lx9te0Qki2+Vtcsb/U6sNiAtxvQZi8tq3j35YehD FcyK9rE0w/2yZiZoW2ptY+XctUO/HdhyOe8r5ug4Le5bc5N6N2zHww9pl12Gqc67jE02Q+3/vEO/uuWw x+3p13S24fdyhhsF6Lj28nolk63xO3qP3Xz51vXUM0 dJp1FFW/oBdfIxp59cxb//251mMWGVE4gW/XkkP+zPtwy+0BiGVN7/E+4z6yPp7tnZhGM2m/M42pVriA /5Pi2i9BJUf9ce/dvv3y1e6s1043/0xvMa53a+7fmu07/9lrs/SO+Lzfk29k940ti/36ktbX/e0v78O/ Ku3DS06Clk33aab5bN+0L63kdCXtw7b7Po7SJ2O13d 9Ged5fV60dwkD7cO/sL1PV/o7iIUcy6vosy7B+9I42JwRJ/n7jXl9JHFn5O0e/mr/XP2av+6vdrevtN+ BBUDO8OIDN49E5VEk371hn3W5G8FgcIa8Hj5Ta9ah8BzolDchGsPPl7SK+JE6LG1tDwLQr2xW/AX+Ggv 1gq64rn3Cx043WQ3WosqO/wDfvtPbvhfbfhfbfhfbc P7Nbxf+F9t+F9t+F9t+F9t+W3eO3iV3XF/1Ta0F/5XG/5XG/5XG/2N45TpT4u5/GP4tk08+mHfhI707+ 2ut44280mwS5d+LidrIddfX78h+AY++rOjPzveL/iacgN2xdL20ygH2u47rltf3ieaw3L5lS/zx7h95t CSU0l51h3C2z77H/hInr50yJ1w0Tp5s/A3+Af8Pu+8 U7+6ZfAH+AN8AR/rTQotqkVk6RBzd/YetPegPx+209U9PiD1mY6x6/b0zX3lr9Kjb8Z3flve7u0l38sk /r8hO4F9pS/Bn+Ey2GMg23s5/W8Z1TiX5SdvFwm0+Nr6Nk8Xh/ktVp1ba+t23twas3tD6LV5DD+CP1H/ Qv1tbz+m4z1C0cbQ//FpMGnB90Ok5O/o6d31Ju4mLS l/1PAfR8yv58zQQf0Q6IZXG/BzXmdp170v392z401c192i218h647c802a251I5QU/+4F/+4F/+4F/+4 F/+6fr50O7M2f59C1g6v+c4C/wF/zk59RB9+rkX1kvg4dK0/b2g/3Bg/3Bg/3BM9v+sKard646yI/1/s H+4MH+2Hjpuo0R19a7+bdItifJs96pH6yCBw06mSGj z29bpnsVu/A3+G9nUSy3IWxi+/z+Cx8s9Cwt5T60qRn/J/IqtXk09hggU5lNL5w4ObsWlC/0pn0gNcpz g/hXB/uDB/7tB/7tB/jin+cJ1D318E68hg2t3Q/PSvlXf0GC/+og/tVB/KuD+PyX1ybOpu3zsD04mZ33 EP/aVM2KFitto/ODx3p//6R+Feu4E/rUjmgwbQ3wpX 47oV+dXlmvnapvL48Jo+rxtMcmP+JRZD8J/Uo9+eEPHDaB4+0/eVK/yn4S+eX5XS67d3y+GNdPoWet8d Y+2R9e/Ct8aFR72j0sq4Azjy65pi+T/Ma0n1NrLc/g4Kf/Vcph5/nf+A+74xMe+Asy4boJq/6NdR2lem /8r516E4Q6kN/Ncq9/T/llGUtWXfj9jj64p2e58EN9 vxvYhlZ6r8/Z5zTN9f6+Ecgah7Ar1LfdM/AFfMzPB/Doywu6IX8kkD9Ooa/B2llnSb4j5HV376SxSGN6 KkRUJ37azH1fTyb1CBUlEctrXIGPDf5yKwznmvndQgnfyI1tExxEaRkBxsbpMokuraDi81igUpqkj8fj AhUXoUMMown9i+dDgkh/ep6HRQfRQnXzcAxN8wR8H0 Q+NBdcNdxFZoSOVIKZAxvhIwtTeTJzyISUuQva4jD+b/8GZrU4Xwc58AyB1EtA8ePYYX7OxXcMIGIaOu FkzJy7vfKw6lFlECyDtk9dj05Yg4h7Im5w1smC0mpM34mbbqDdhP3RXe2+bM275pfZ7GhlS4W/yLFPhn r3WA2jdQ1S9WMpJx+ItE+GechwpE/SytXWfsKrw4Ry ytvFYsy7EGLr6UjHuWxYBdWcpy0YKzttAk6MSBhVKhkdZyycPjxCEjwjrotiwH5ZGRABQK4uHoq6Lcyw /h3jf3P+a8ux0ioNomQV7rLu2fKxctd4kG5jkp3prE21NrySxEU4ApGOyvyw7aM/BkprwU1kjU5nA/JN oH2O2Jxc/TY5TDfByO6bOgJeLQVJlBoQeIYMi3q3G/ JLAIFj/Ou7KhxA2EK9S4RTrIX33Kq7ybWoOAiaphxetL3OWpGuUnVUjWYaPf8uW0uZLyQLyR+HBJFBZB ARIr1C/YTeBuiWCplJZvFIeRbTUPUYQSGcN3nllsKBFxMjdh/9PCSIDCKDiBARIpPIJEIZbMpgK+9BbN BGeYVykiotp2q668x0yQ9tWcgmDXASFrXYoZ5f/D4H ZK5cB9jSAVRoyNyjf5xpuzTHzIMiFIR7L4AXGVVen7AXQR6wSo/4CCIIDTvgSzb+JNYYiDYx/qTZGIg3 KXk87iYLLNHyGhR+NyPiRJzIJrKJHCKUwUA/YSRcQ1SMWzn/MTJAfROsjTIYlMGgDAZlMCiDQRkMymBQ JzCgCOJFzZhKVFUus5JAILtCcR/IIMJ+VPdFft8agV YywwXWaIerzy9mpG+hDMR4j/EeykAoAwaw/xPB/klmk0oqM9qYbjVqo9uNsSTZxOBsyFzAUdqCWTItVI Op/G/G/7RQaDkwZUkIXmhGdAqP2/5PYPs/ke3/hLb/E9v+T0U9Y2Tk/4S3/xPf/k+A+z8R7v+EuP8T4/ 5PkPs/Ue7/hLn/E+f+AhnwMUnWh0tbG41prs97SwoE rjTgYpDrJ9oHMTZMbdHm0z5XkBSGQnqp5J6+1sLt3u1YRkerIM2AY3FzyxAJCASEWUPRQVOVZZc+NTzZ RoXC/lzlqktdZ7RquWQNLrWIPHYxvZOMGw2CDURefSBPSe7KJWTpwCIhUyw0zsDveREjQSuoeFxKKxNI YbwwtjZBva0aH0Y8PpulA4mA/xMq/0+s/D/B8v9Ey/ 4MMq9NlGq/AfP/Regino/EzL/B9z4npSb85dAS7WEZWez28GcfWZOrNRWscMo8To/wuf/iZ//J4D+nwj6f0 Lo/4mh/Paulo/p8o+n/C6P+Amena/0klJ0tNXv/Qun/iaX/J5j+ynKyFqLSoV5sAX1iHXLWvgD3pfRvLP5lqA [file] Immigration Case Manager+AmDxkEZ3563UvBZjkR8mf5SFzAA1Gg4yv8Tt1gQTMj6MCnZC4Mv5wlhH5XBzRh/KseR9jzoTlizE7 [file] 00sCXkr180La+yoghurt maker/ZlfewLCu1WDMN6kVItUvfYpmw DjlLxOX084odCXJYGV+cIT1Wvhk3ELtBQp+PQSufru6QeiqrghyopCcrylVHvyFBxAjqD3cQWxWIdLMb ELfUGgFG2UEs9y7akt3BTexeEFSr9G0X/jWDHlHJ89bM8+EYqPsqyEwqJtDZpJXeFAhELlPSqpXPV3V+ ZVxJR3Iwe2QDWIlImPyC6qTibJ5I2wzNyIcO6YSmNB A0t5x4MGcFDycQRGoMmJkF2NGgNKU8vcZs0Fz8YLmLbG1XLU+ArT3t90ZCeGbMJFOiTS1Vd5THdAPwQQ cKPVnIBPKJWxdAckLzGTseI1Cqcs4JWWKt7iL0qif3HjrMEIZN+L995a6k61akGwBmF0SeQq2L8THF/c YUT1J2RK8W6ixBcXrHfj7VkmByu5scUnp3iSn+YqKf mOgnOo/IgVpfH9oqV0jnI0t6G95PJzyWNPSraIK/wM1pBtmZ6PT0EjlAlTWv1PNki0QB7+dNW6dciL8M 5OAjpW9KlThhN4RpXJaQLzCPpESx+llT60mDJtyIOpBXZUnDHnjKSeuHgkEhEHF6AKnEYdYNaSDuXM9K ZOfEDOLTQxQErQCVIYBqzDNrfDwYphqEX5LCGCVCQS [file] Zy4vqWW3VSGuSbpJPc1Ri9XzckR4rkBbMsh2CSW1FdYrWL4Y ID Date Data Source [id number] 03/07/2021 01:01:44 AM EDT [facility] INFORMATIONPatient MRN Name Date of Age Gend*PT [id number] Collette Mahoney 1995 26 years M EDPT Location Admission Date/Time Visit ID Attending [id number] 03/06/212203 --- Jane Alejandra MD ([id number]) EPI ID CSN Admitting Provider [id number] ---Provider in Triage NotesNo notes on fileHistory [...] by: Patient, medical records and EMS personnelLanguage bung remover used: NoHistoryHistory reviewed. No pertinent past medical [...] rhythmComments: QTc 401MDMNumber of Diagnoses or Management Mmvhing78 year old male patient presents to the [...] access a primarycare physicianReturn precautions givenStable for [id number] scribed for Dr. Jane Alejandra MD, signed [...] rce(s) Supporting Document(s) ID Date Data Source [id number] 03/07/2021 12:23:05 AM EDT [facility] Name Value Range Interpretation Code Description Data Lisa rce(s) Supporting Document(s) POC CTNI <0.01 ng/mL (0.01-0.07) L [facility] Less than 0.08: Myocardial injury unlike lyGreater than or equal to 0.08: Highlysuggestive of myocardial injuryCorrelation with rise and/or fall ofserial troponins, clinical symptoms,and ECG changes is necessary.PERFORMED BY [facility] ID Date Data Source [id number] 03/07/2021 12:12:48 AM EDT [facility] Name Value Range Interpretation Code Description Data Lisa rce(s) Supporting Document(s) PT 11.2 s (9.2-11.9) [facility] INR 1.06 [facility] SUGGESTED THERAPEUTIC RANGES USING INR F ORSTABILIZED ANTICOAGULATED PATIENTS:STANDARD DOSE THERAPY INR 2.0-3.0 DVT, PE, PREVENT DVT OR EMBOLISMHIGH DOSE THERAPY INR 2.5-3.5 PREVENT EMBOLISM FROM MECHANICAL HEART VALVE ID Date Data Source [id number] 03/07/2021 12:05:26 AM EDT [facility] Name Value Range Interpretation Code Description Data Lisa rce(s) Supporting Document(s) TSH,ULTRASENSITIVE @ 1.282 mIU/L (0.360-4.170) [facility] PERFORMED AT [address] [place] [address] [address] [place] [id number] ID Date Data Source [id number] 03/07/2021 12:05:26 AM EDT [facility] Name Value Range Interpretation Code Description Data Lisa rce(s) Supporting Document(s) SODIUM 144 mmol/L (136-145) [facility] POTASSIUM 3.5 mmol/L (3.6-5.2) L [facility] CHLORIDE 114 mmol/L (100-108) H [facility] CO2 23 mmol/L (22-31) [facility] ANION GAP 7 mmol/L (7-16) [facility] UREA NITROGEN 17 mg/dL (7-24) [facility] CREATININE 0.90 mg/dL (0.80-1.30) [facility] BUN/CREAT RATIO 18.9 RATIO (10.0-20.0) [facility] GLUCOSE 101 mg/dL (70-99) H [facility] CALCIUM 8.9 mg/dL (8.4-10.2) [facility] TOTAL PROTEIN 6.5 g/dL (6.4-8.2) [facility] ALBUMIN 3.4 g/dL (3.5-4.6) L [facility] GLOBULIN 3.1 g/dL (2.7-4.3) [facility] ALB/GLOB RATIO 1.1 RATIO [facility] ALKALINE PHOSPHATASE 103 U/L (45-117) [facility] BILIRUBIN,TOTAL 0.7 mg/dL (0.0-1.0) [facility] PLEASE NOTE:Total bilirubin results may be falselyelevated in patients taking Eltrombopag. AST (SGOT) 15 U/L (11-39) [facility] ALT (SGPT) 15 U/L (12-78) [facility] GFR >60 ml/min/1.73m2 (>59) [facility] GFR ( AMER) >60 ml/min/1.73m2 (>59) [facility] GFR INTERPRETATION [facility] --NORMAL KIDNEY FUNCTION OR MILD DISEASE - GFR >OR= 60CHRONIC KIDNEY DISEASE - GFR 15 - 59RENAL FAILURE - GFR <15 Est. GFR calculation based on the MDRDstudy equation, which assumes a steadystate for creatinine. Est. GFR should notbe used for medication dosing. ID Date Data Source [id number] 03/07/2021 12:05:26 AM EDT [facility] Name Value Range Interpretation Code Description Data Lisa rce(s) Supporting Document(s) FREE THYROXINE @ 1.16 ng/dL (0.76-1.46) [facility] PER[facility] AT [address] [place] [address] [place] [id number] ID Date Data Source [id number] 03/07/2021 12:04:41 AM EDT [facility] Name Value Range Interpretation Code Description Data Lisa rce(s) Supporting Document(s) WBC 12.4 10*3/uL (4.1-11.0) H [facility] RBC 5.21 10*6/uL (4.60-6.10) [facility] HGB 15.4 g/dL (13.5-18.0) [facility] HCT 45.9 % (41.0-53.0) [facility] MCV 88.1 fL (80.0-95.0) [facility] MCH 29.6 pg (27.0-32.0) [facility] MCHC 33.6 g/dL (32.0-36.0) [facility] RDW 12.3 % (10.5-14.5) [facility] PLT 194 10*3/uL (150-450) [facility] MPV 8.4 fL (7.1-10.7) [facility] NEUT % 75.1 % (35.0-75.0) H [facility] LYMPH % 16.1 % (16.0-52.0) [facility] MONO % 6.9 % (0.0-8.0) [facility] EOS % 1.5 % (0.0-5.0) [facility] BASO % 0.4 % (0.0-4.0) [facility] NEUT # 9.3 10*3/uL (1.8-7.7) H [facility] LYMPH # 2.0 10*3/uL (1.2-4.8) [facility] MONO # 0.9 10*3/uL (0.0-0.8) H [facility] Eosinophils [#/volume] in Blood by Automated count 0.2 10*3/uL (0.0-0 .5) [facility] BASO # 0.1 10*3/uL (0.0-0.2) [facility] Procedure Social History Code Duration Value Status Description Data Source(s ) Alcohol intake 03/06/2021 12:00:00 AM EDT Current drinker of al cohol (finding) completed Current drinker of alcohol (finding) [facility] Tobacco use and exposure 03/06/2021 12:00:00 AM EDT Never used co mpleted Never used [facility] Cigarette pack-years 03/06/2021 12:00:00 AM EDT UNK completed [facility] Cigarettes smoked current (pack per day) - Reported 03/06/20 12:00:00 AM EDT UNK completed [facility] Smoking 03/06/2021 12:00:00 AM EDT Current every day smoker co mpleted Current every day smoker [facility] Vital Signs ID Date Data Source UNK Name Value Range Interpretation Code Description Data Source(s) Heart rate 58 /min 58 /min [facility] Body temperature 37 June 37 June [facility] Systolic blood pressure 122 mm[Hg] 122 mm[Hg] S [facility] Diastolic blood pressure 73 mm[Hg] 73 mm[Hg] [facility] Respiratory rate 18 /min 18 /min [facility] Body height 175.3 cm 175.3 cm [facility] Body weight 81.647 kg 81.647 kg [facility] Body mass index (BMI) [Ratio] 26.58 kg/m2 26.58 kg/m2 [facility] Oxygen saturation in Arterial blood by Pulse oximetry 98 % 98 % [facility]
[2021-04-16 16:14] LABS: BASO % 0.4 % (0.0-1.0); EOS # 0.2 10^3/uL (0.0-0.5); HEMATOCRIT 47.8 % (42.0-52.0); HEMOGLOBIN 16.3 g/dl (13.5-17.5); LYMPH # 2.5 10^3/uL (1.5-5.0); LYMPH % 33.3 % (24.0-44.0); MEAN CORPUSCULAR HEMOGLOBIN 29.9 pg (27.0-33.0); MEAN CORPUSCULAR HGB CONC 34.1 g/dl (32.0-36.5); MEAN CORPUSCULAR VOLUME 87.5 fl (80.0-96.0); MONO # 0.5 10^3/uL (0.0-0.8); MONO % 6.1 % (2.0-8.0); NEUTROPHILS # 4.4 10^3/uL (1.5-8.5); NEUTROPHILS % 57.9 % (36.0-66.0); PLATELET COUNT, AUTOMATED 226 10^3/uL (150-450); RED BLOOD COUNT 5.46 10^6/uL (4.30-6.10); WHITE BLOOD COUNT 7.5 10^3/uL (4.0-10.0)
[2021-04-16 16:46] LABS: CK-MB VALUE MASS < 1.0 NG/ML (<3.6); CPK CREATINE PHOSPHOKINASE 132 U/L (39-308); MB/CK RELATIVE INDEX 0.76 (< OR =4); TROPONIN I < 0.02 NG/ML (< 0.10)
[2021-04-16 17:02] LABS: RSV AMPLIFICATION NEGATIVE (NEGATIVE)
[2021-04-16 17:45] LABS: ALBUMIN 4.5 GM/DL (3.2-5.2); ALT/SGPT 13 U/L (12-78); BILIRUBIN,TOTAL 1.2 MG/DL (0.2-1.0); BLOOD UREA NITROGEN 16 MG/DL (7-18); CALCIUM LEVEL 9.7 MG/DL (8.5-10.1); CARBON DIOXIDE LEVEL 27 MEQ/L (21-32); CHLORIDE LEVEL 108 MEQ/L (98-107); CREATININE FOR GFR 1.16 MG/DL (0.70-1.30); FREE THYROXINE INDEX 3.5 % (1.4-3.8); GLOMERULAR FILTRATION RATE > 60.0 (>60); GLUCOSE, FASTING 83 MG/DL (70-100); POTASSIUM SERUM 3.7 MEQ/L (3.5-5.1); SODIUM LEVEL 143 MEQ/L (136-145); T UPTAKE 35 % (33-40); THYROID STIMULATING HORMONE 0.734 uIU/ML (0.358-3.740); THYROXINE (T4) 9.9 UG/DL (4.5-12.0); TOTAL PROTEIN 7.3 GM/DL (6.4-8.2)
[2021-04-16] MEDS ORDERED: ISOVUE-370 76% 100ML VIAL As Ordered ONE (17:46)
--- NOTE | 2021-04-16 19:12 | REPVR ---
PROCEDURE INFORMATION: Exam: CT Neck With Contrast Exam date and time: 04/16/2021 5:56 PM Age: 26 years old Clinical indication: Other: Globus sensation TECHNIQUE: Imaging protocol: Computed tomography images of the neck with contrast. Radiation optimization: All CT scans at this facility use at least one of these dose optimization techniques: automated exposure control; mA and/or kV adjustment per patient size (includes targeted exams where dose is matched to clinical indication); or iterative reconstruction. Contrast material: ISOVUE 370; Contrast volume: 100 ml; Contrast route: INTRAVENOUS (IV); COMPARISON: CR Chest, 2 view PA, Lat 04/04/2021 1:19 AM FINDINGS: Nasopharynx: Unremarkable. Oropharynx: Unremarkable. No significant tonsillar enlargement. Hypopharynx: Unremarkable. Larynx: Unremarkable. Normal epiglottis. Retropharyngeal space: Unremarkable. Submandibular/Parotid glands: Normal. Glands are normal in size. Thyroid: Normal. No enlarged or calcified nodules. Lymph nodes: Unremarkable. No lymphadenopathy. Trachea: Visualized trachea is unremarkable. Lungs: Unremarkable as visualized. Bones/joints: Unremarkable. No acute fracture. Soft tissues: Unremarkable. No significant soft tissue swelling. IMPRESSION: No acute findings. Electronically signed by: Romel Gallagher On 04/16/2021 19:12:07 PM
--- NOTE | 2021-04-16 19:16 | REPVR ---
PROCEDURE INFORMATION: Exam: CTA Chest With Contrast Exam date and time: 04/16/2021 5:56 PM Age: 26 years old Clinical indication: Pain; Other: Cp; Additional info: Chest pain with palpitations TECHNIQUE: Imaging protocol: Computed tomographic angiography of the chest with contrast. 3D rendering (Not supervised by radiologist): MIP and/or 3D reconstructed images were created by the technologist. Radiation optimization: All CT scans at this facility use at least one of these dose optimization techniques: automated exposure control; mA and/or kV adjustment per patient size (includes targeted exams where dose is matched to clinical indication); or iterative reconstruction. Contrast material: ISOVUE 370; Contrast volume: 100 ml; Contrast route: INTRAVENOUS (IV); COMPARISON: CR Chest, 2 view PA, Lat 04/04/2021 1:19 AM FINDINGS: Pulmonary arteries: Normal. No pulmonary emboli. Aorta: Unremarkable. No aortic aneurysm. No aortic dissection. Lungs: Unremarkable. No consolidation. No masses. Pleural spaces: Unremarkable. No pneumothorax. No pleural effusion. Heart: Unremarkable. No cardiomegaly. No pericardial effusion. Lymph nodes: Unremarkable. No enlarged lymph nodes. Bones/joints: Unremarkable. No acute fracture. Soft tissues: Unremarkable. IMPRESSION: No acute findings. Electronically signed by: Romel Gallagher On 04/16/2021 19:15:33 PM
[2021-04-16 19:48] VITALS: BP 120/69
--- NOTE | 2021-04-17 08:10 | ECGEPIP ---
[facility] - ED Test Date: 2021-04-16 Pat Name: COLLETTE MAHONEY Department: Room: - Gender: Male [employer] Professor: Stanislaw SEN : 1995 Requested By: JULIO Betancourt PA-C Order Number: [id number] Reading MD: Yamilka Phelps Measurements Intervals Virgie Rate: 61 P: 61 VA: 126 QRS: 77 QRSD: 86 T: 51 QT: 410 QTc: 412 Interpretive Statements Sinus rhythm with premature atrial complexes Electronically Signed on 04-17-2021 8:10:11 EST by Yamilka Phelps
== END 2021-04-16 20:07 | disposition home or self-care (01) ==
LOC: M ED 09:56
DX: R09.89 Other specified symptoms and signs involving the circulatory and respiratory systems (principal); M94.0 Chondrocostal junction syndrome [Tietze]; I49.9 Cardiac arrhythmia, unspecified; F17.200 Nicotine dependence, unspecified, uncomplicated
CPT/HCPCS: 70491; 71275; 80053; 82550; 82553; 84436; 84443; 84479; 84484; 85025; 87631; 93005; 96361; 96374; 99284; J1885; Q9967

== ENCOUNTER 2021-04-27 08:05 | Emergency (ER) | payer OTHER ==
[~2021-04-27] VITALS: Ht 175.3 cm; Wt 77.3 kg
[2021-04-27] MEDS ORDERED: TUMS500C PO (08:25)
[2021-04-27] MEDS ORDERED: IBUP200C25 PO (08:25)
[2021-04-27] MEDS ORDERED: 24hr Holter XX (10:13)
[2021-04-27 10:33] VITALS: BP 110/58
== END 2021-04-27 10:36 | disposition home or self-care (01) ==
LOC: EDBD 08:05 → M ED 08:05
DX: R00.2 Palpitations (principal)

== ENCOUNTER 2021-04-27 15:13 | Emergency (ER) | payer OTHER ==
[~2021-04-27] VITALS: Ht 175.3 cm; Wt 77.2 kg
[2021-04-28 04:42] LABS: BASO % 0.4 % (0.0-1.0); EOS # 0.2 10^3/uL (0.0-0.5); EOS % 2.6 % (0.0-3.0); HEMATOCRIT 45.3 % (42.0-52.0); HEMOGLOBIN 15.5 g/dl (13.5-17.5); LYMPH # 2.7 10^3/uL (1.5-5.0); LYMPH % 35.1 % (24.0-44.0); MEAN CORPUSCULAR HGB CONC 34.2 g/dl (32.0-36.5); MEAN CORPUSCULAR VOLUME 87.8 fl (80.0-96.0); MONO # 0.5 10^3/uL (0.0-0.8); NEUTROPHILS # 4.2 10^3/uL (1.5-8.5); NEUTROPHILS % 55.6 % (36.0-66.0); PLATELET COUNT, AUTOMATED 205 10^3/uL (150-450); RED BLOOD COUNT 5.16 10^6/uL (4.30-6.10); WHITE BLOOD COUNT 7.6 10^3/uL (4.0-10.0)
[2021-04-28 05:16] LABS: BLOOD UREA NITROGEN 16 MG/DL (7-18); CALCIUM LEVEL 9.5 MG/DL (8.5-10.1); CARBON DIOXIDE LEVEL 27 MEQ/L (21-32); CHLORIDE LEVEL 110 MEQ/L (98-107); CREATININE FOR GFR 1.23 MG/DL (0.70-1.30); GLOMERULAR FILTRATION RATE > 60.0 (>60); GLUCOSE, FASTING 86 MG/DL (70-100); MAGNESIUM LEVEL 2.2 MG/DL (1.8-2.4); POTASSIUM SERUM 4.1 MEQ/L (3.5-5.1); SODIUM LEVEL 144 MEQ/L (136-145)
[2021-04-28] MEDS ORDERED: ISOVUE-370 76% 100ML VIAL As Ordered ONE (06:37)
[2021-04-28 12:15] VITALS: BP 121/63
== END 2021-04-28 12:41 | disposition home or self-care (01) ==
LOC: M ED 15:13
DX: R00.2 Palpitations (principal)
CPT/HCPCS: 70544; 70551; 71045; 71275; 80048; 83735; 84484; 85025; 93005; 93225; 93226; 99284; 99285; Q9967

== ENCOUNTER → 2021-04-27 | Outpatient (CLI) | payer OTHER ==
[~2021-04-27] MED LIST: 24hr Holter XX; IBUP200C25 PO; TUMS500C PO
== END ==
LOC: M EKG 11:05
PROVIDERS: ATTEND Emergency Medicine
DX: R00.2 Palpitations (principal)

== ENCOUNTER 2021-05-04 12:40 | Emergency (ER) | payer OTHER ==
[~2021-05-04] VITALS: Ht 175.3 cm; Wt 76.7 kg
[2021-05-05 08:06] LABS: BASO # 0.1 10^3/uL (0.0-0.2); BASO % 0.7 % (0.0-1.0); EOS # 0.1 10^3/uL (0.0-0.5); HEMATOCRIT 47.4 % (42.0-52.0); HEMOGLOBIN 16.3 g/dl (13.5-17.5); LYMPH # 2.3 10^3/uL (1.5-5.0); LYMPH % 32.1 % (24.0-44.0); MEAN CORPUSCULAR HEMOGLOBIN 29.7 pg (27.0-33.0); MEAN CORPUSCULAR HGB CONC 34.4 g/dl (32.0-36.5); MEAN CORPUSCULAR VOLUME 86.5 fl (80.0-96.0); MONO # 0.5 10^3/uL (0.0-0.8); MONO % 6.8 % (2.0-8.0); NEUTROPHILS # 4.2 10^3/uL (1.5-8.5); NEUTROPHILS % 58.1 % (36.0-66.0); PLATELET COUNT, AUTOMATED 206 10^3/uL (150-450); RED BLOOD COUNT 5.48 10^6/uL (4.30-6.10); WHITE BLOOD COUNT 7.2 10^3/uL (4.0-10.0)
[2021-05-05 08:43] LABS: ALBUMIN 4.2 GM/DL (3.2-5.2); BILIRUBIN,DIRECT 0.3 MG/DL (0.0-0.2); THYROID STIMULATING HORMONE 2.12 uIU/ML (0.358-3.740); TOTAL PROTEIN 7.5 GM/DL (6.4-8.2)
[2021-05-05 09:27] VITALS: BP 120/72
== END 2021-05-05 09:32 | disposition home or self-care (01) ==
LOC: M ED 12:40
DX: R07.89 Other chest pain (principal); R51.9 Headache, unspecified; R00.1 Bradycardia, unspecified; Z87.891 Personal history of nicotine dependence

== ENCOUNTER 2021-10-02 22:13 | Emergency (ER) | payer OTHER ==
[~2021-10-02] VITALS: Ht 175.3 cm; Wt 77.9 kg
[2021-10-03 02:11] LABS: BASO % 0.4 % (0.0-1.0); EOS # 0.2 10^3/uL (0.0-0.5); EOS % 1.5 % (0.0-3.0); HEMATOCRIT 47.1 % (42.0-52.0); HEMOGLOBIN 16.3 g/dl (13.5-17.5); LYMPH # 2.4 10^3/uL (1.5-5.0); MEAN CORPUSCULAR HEMOGLOBIN 30.4 pg (27.0-33.0); MEAN CORPUSCULAR HGB CONC 34.6 g/dl (32.0-36.5); MEAN CORPUSCULAR VOLUME 87.7 fl (80.0-96.0); MONO # 0.6 10^3/uL (0.0-0.8); MONO % 6.4 % (2.0-8.0); NEUTROPHILS # 6.5 10^3/uL (1.5-8.5); NEUTROPHILS % 66.5 % (36.0-66.0); PLATELET COUNT, AUTOMATED 217 10^3/uL (150-450); RED BLOOD COUNT 5.37 10^6/uL (4.30-6.10); WHITE BLOOD COUNT 9.7 10^3/uL (4.0-10.0)
[2021-10-03 02:33] LABS: MONO REFLEX EBV COMP NEGATIVE (NEGATIVE)
[2021-10-03 02:37] LABS: ERYTHROCYTE SEDIMENTATION RATE 2 mm/hr (0-15)
[2021-10-03 02:42] LABS: BLOOD UREA NITROGEN 11 MG/DL (7-18); CALCIUM LEVEL 9.3 MG/DL (8.5-10.1); CARBON DIOXIDE LEVEL 28 MEQ/L (21-32); CHLORIDE LEVEL 112 MEQ/L (98-107); CREATININE FOR GFR 1.07 MG/DL (0.70-1.30); GLOMERULAR FILTRATION RATE > 60.0 (>60); GLUCOSE, FASTING 94 MG/DL (70-100); MAGNESIUM LEVEL 2.2 MG/DL (1.8-2.4); POTASSIUM SERUM 3.9 MEQ/L (3.5-5.1); SODIUM LEVEL 144 MEQ/L (136-145); THYROXINE (T4) 7.5 UG/DL (4.5-12.0)
[2021-10-03 03:07] VITALS: BP 127/63
[2021-10-03] MEDS ORDERED: OXCA300T14 PO (03:18)
[2021-10-05 16:13] LABS: EBV AB TO NUCLEAR ANTIGEN <18.0 U/mL (0.0-17.9); EBV VIRAL CAPSID AG IgG <18.0 U/mL (0.0-17.9); EBV VIRAL CAPSID AG IgM <36.0 U/mL (0.0-35.9)
== END 2021-10-03 03:31 | disposition home or self-care (01) ==
LOC: M ED 22:13
DX: G50.0 Trigeminal neuralgia (principal); Z79.899 Other long term (current) drug therapy